=== PATIENT | male | born 1930 | race Caucasian/White ===

== ENCOUNTER 2017-11-01 20:03 | Inpatient (IN) | payer OTHER, MEDICARE ==
[~2017-11-01] VITALS: Ht 177.8 cm; Wt 69.9 kg
[~2017-11-01 20:03] MED LIST: AGGRENOX 25 MG-1 CAP PO; ALTACE5 MG PO; ATORVASTATIN CA40 MG PO; MECLICOT12.5 MG PO; METOPROLOL TART50 MG PO
--- NOTE | 2017-11-01 20:15 | ED MVC/FALL/TRAUMA COMPLAINT ---
History of Present Illness General Chief Complaint: Fall Stated Complaint: FALL Source: patient, old records, EMS Exam Limitations: no limitations Vital Signs & Intake/Output Vital Signs & Intake/Output Vital Signs Date Time Temp Pulse Resp B/P B/P Pulse O2 O2 Flow FiO2 Mean Ox Delivery Rate 11/01 2007 98.7 18 171/76 95 Room Air Room Air Allergies Coded Allergies: Penicillins (UNKNOWN 11/01/17) Reconcile Medications Atorvastatin Calcium (Lipitor) 40 MG TAB 1 TAB PO DAILY CHOLESTEROL (Reported ) Dipyridamole W/ Aspirin (Aggrenox 25 MG-200 MG Capsule) 25 MG/200 MG CAP 1 CAP PO BID BLOOD THINNER (Reported) Meclizine Hydrochloride (Meclicot) 12.5 MG TAB 1 TAB PO Q6H PRN DIZZINESS Metoprolol Tartrate 50 MG TAB 1.5 TAB PO BID HEART (Reported) Ramipril (Altace) 5 MG CAP 1 CAP PO DAILY BP (Reported) Triage Note: TRIAGE: 87 Y/O MALE BIBA FROM HOME S/P FALL AFTER SLIP ON ICE THIS AFTERNOON. "I WAS TAKING OUT THE GARBAGE FOR COLLECTION TOMORROW AND I SLIPPED." DENIES HEADSDTRIKE. REPORTS 5/10 LEFT HIP PAIN. Triage Nurses Notes Reviewed? yes HPI: Patient was wearing his trash out when he slipped on the ice and fell landing on his left hip. Patient denies hitting his head and there was no loss of consciousness. Patient is complaining of 7 out of 10 pain to his left hip that increases with movement. The pain radiates down towards his knee. The pain is constant. The pain is throbbing in nature. Patient denies any other injury. Patient denies any shortness of breath. There is no headache or blurry vision. Past History Travel History Traveled to [place] past 21 day No Medical History Any Pertinent Medical History? 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 No Review of Systems Review of Systems Constitutional: Reports: no symptoms. Eyes: Reports: no symptoms. Ears, Nose, Throat, Mouth: Reports: no symptoms. Respiratory: Reports: no symptoms. Cardiovascular: Reports: no symptoms. Gastrointestinal/Abdominal: Reports: no symptoms. Genitourinary: Reports: no symptoms. Musculoskeletal: Reports: see HPI, joint pain. Skin: Reports: no symptoms. Neurological/Psychological: Reports: no symptoms. All Other Systems: Reviewed and Negative Physical Exam Physical Exam General Appearance: well developed/nourished, alert, awake, anxious, moderate distress Head: atraumatic, normal appearance Eyes: Bilateral: PERRL, EOMI. Ears, Nose, Throat, Mouth: hearing grossly normal, moist mucous membrane Neck: normal inspection, supple, full range of motion, no midline tenderness Respiratory: normal breath sounds, chest non-tender, no respiratory distress, lungs clear Cardiovascular: regular rate/rhythm, normal peripheral pulses Gastrointestinal: normal bowel sounds, soft, non-tender, no organomegaly Back: normal inspection, no vertebral tenderness Extremities: tenderness (LEFT HIP), DECREASED ROM LEFT HIP, LLE SHORTENED Neurologic/Psych: no motor/sensory deficits, awake, alert, oriented x 3, normal mood/affect Skin: intact, normal color, warm/dry Core Measures ACS in differential dx? No CVA/TIA Diagnosis No Sepsis Present: No Sepsis Focused Exam Completed? No Progress Differential Diagnosis: ext injury, pnemothorax Plan of Care: Orders Procedure Date/time Status Nothing by Mouth 11/02 B Active ED Holding Orders 11/01 2212 Active Admit to inpatient 11/01 2212 Active Vital Signs 11/01 2212 Active Code Status 11/01 2212 Active EKG 11/01 2013 Active PARTIAL THROMBOPLASTIN TIME 11/01 2012 Complete PROTHROMBIN TIME 11/01 2012 Complete COMPREHENSIVE METABOLIC PANEL 11/01 2012 Complete CBC WITHOUT DIFFERENTIAL 11/01 2012 Complete TYPE & SCREEN (NOT X-MATCH) 11/01 2012 Complete Laboratory Tests 11/01/172021: Anion Gap 12, Estimated GFR 41 L, BUN/Creatinine Ratio 33.1 H, Glucose 194 H, Calcium 9.8, Total Bilirubin 0.9, AST 60 H, ALT 38, Alkaline Phosphatase 75, Total Protein 6.8, Albumin 4.3, Globulin 2.5, Albumin/Globulin Ratio 1.7, PT 11.6, INR 1.11, APTT 29, CBC w Diff NO MAN DIFF REQ, RBC 3.31 L, MCV 99.6 H, MCH 33.3 H, RDW 13.1, MPV 8.7, Gran % 90.0 H, Lymphocytes % 3.5 L, Monocytes % 6.5, Eosinophils % 0, Basophils % 0, Absolute Granulocytes 9.9 H, Absolute Lymphocytes 0.4 L, Absolute Monocytes 0.7 H, Absolute Eosinophils 0, Absolute Basophils 0, PUBS MCHC 33.4 Diagnostic Imaging: Viewed by Me: Radiology Read. Discussed w/RAD: Radiology Read. Initial ED EKG: pacemaker rhythm Prior EKG: unchanged Departure Departure Disposition: STILL A PATIENT Condition: Fair Clinical Impression Primary Impression: Fracture of femoral neck, left, closed Qualifiers: Encounter type: initial encounter Qualified Code: S72.002A - Fracture of unspecified part of neck of left femur, initial encounter for closed fracture Referrals: Ye Escoto MD (PCP/Family) Departure Forms: Customer Survey General Discharge Information Admission Note Spoke With: Johnnie Robertson MD Documentation of Exam: Documentation of any treatments & extenuating circumstances including Concerns Regarding Discharge (functional status, medication knowledge or non-compliance, living conditions, etc.) that warrant an admission rather than observation: [ ADMIT FOR PAIN CONTROL, MEDICAL CLEARENCE AND THEN OR FOR SURGICAL CORRECTION.]
[2017-11-01 20:29] LABS: ABSOLUTE BASOPHIL COUNT 0 /CUMM (0.0-0.2); ABSOLUTE EOSINOPHIL COUNT 0 /CUMM (0.0-0.7); ABSOLUTE GRANULOCYTE CT 9.9 /CUMM (1.4-6.5); ABSOLUTE LYMPH COUNT 0.4 /CUMM (1.2-3.4); ABSOLUTE MONOCYTE COUNT 0.7 /CUMM (0.10-0.60); BASOPHIL % 0 % (0.0-2.0); EOSINOPHIL % 0 % (0-5); MEAN CORPUSCULAR HGB 33.3 PG (27.0-31.0); MEAN CORPUSCULAR HGB CONC 33.4 G/DL (33.0-37.0); MEAN CORPUSCULAR VOLUME 99.6 FL (80.0-94.0); MEAN PLATELET VOLUME 8.7 FL (7.4-10.4); PLATELET COUNT 133 /CUMM (130-400); RBC DISTRIBUTION WIDTH 13.1 % (11.5-14.5); RED BLOOD CELL CT 3.31 /CUMM (4.70-6.10)
[2017-11-01 20:37] LABS: PT 11.6 SEC (9.4-12.5); PTT 29 SEC (25-37)
--- NOTE | 2017-11-01 22:05 | RADIOLOGY REPORT ---
EXAMINATION: XR PELVIS XR LET HIP CLINICAL INFORMATION: Fall. Pain. COMPARISON: None TECHNIQUE: AP view of the pelvis. AP and crosstable lateral views of left hip FINDINGS: There is a comminuted, displaced left subcapital femoral neck fracture. The distal left femur is subluxed cephalad relative to the femoral head which remains normally positioned within the acetabulum. There is mild degenerative arthrosis of the bilateral hips with superior joint space narrowing. Elsewhere, no pelvic fracture is seen. The right hip and pubic rami are intact. There is degenerative arthrosis of the bilateral sacroiliac joints and lower lumbar degenerative changes. IMPRESSION: Comminuted, displaced left subcapital femoral neck fracture with the distal femur superiorly subluxed relative to the femoral head.
--- NOTE | 2017-11-01 22:09 | RADIOLOGY REPORT ---
EXAMINATION:\H\ \N\XR CHEST CLINICAL INFORMATION: Pneumothorax. Fell. COMPARISON: 03/16/2009 TECHNIQUE: Frontal view of the chest was obtained. FINDINGS: Right pectoral 2-lead pacemaker seen with contiguous, intact leads projecting over the right atrium and right ventricle. Sternal wires. Normal heart size. No definite rib fracture seen. Upper abdominal surgical clips. No focal consolidation or mass. No pleural effusion or pneumothorax. Pulmonary venous hypertension without overt edema. IMPRESSION: There is pulmonary venous hypertension without overt edema. 2-lead pacemaker in place, as described above. No definite rib fracture seen.
--- NOTE | 2017-11-01 22:23 | CT SCAN REPORT ---
EXAMINATION: CT OF THE HEAD AND CERVICAL SPINE WITHOUT CONTRAST CLINICAL INFORMATION: Fall. Distracting injury. On Aggrenox. Evaluate for intracranial hemorrhage. COMPARISON: Prior head CT 04/21/2011 TECHNIQUE: Contiguous axial imaging was performed from the vertex to the thoracic inlet, through the head and cervical spine, without intravenous administration of contrast. Coronal and sagittal reformatted images through the cervical spine were obtained on the technologists workstation. Total exam dose-length product: 654 mGy-cm FINDINGS: Head: Motion artifact degrades imaging of the posterior fossa but those images were repeated. No acute intracranial hemorrhage. No extra-axial fluid collection. Left high parietal encephalomalacia consistent with remote prior ischemia is again seen. Otherwise, ling-white differentiation is maintained and there is otherwise normal parenchymal attenuation. Symmetric, concordant ventricles and sulci; no hydrocephalus. No mass effect or midline shift. The osseous structures and soft tissues are normal. No acute sinusitis. Cervical spine: There is counterclockwise, rightward rotation of C1 on C2. No fracture seen. Normal sagittal alignment. Normal prevertebral soft tissues. There is normal T level facet arthropathy moderate on the left at C2-3 through C4-5 and severe on the right at C3-4 and C4-5. No jumped or perched facets are seen. There is multilevel loss of disc height with anterior osteophytosis, most notable at C5-6. Thyroid homogeneous with no nodules seen. Mild upper lobe emphysema. No focal consolidation or mass. Thyroid is homogeneous. No cervical lymphadenopathy, mass, or fluid collection. IMPRESSION: No acute intracranial pathology. Specifically, no intracranial hemorrhage seen. Left high parietal encephalomalacia consistent with remote prior ischemia. There is rightward rotation of C1 on C2. This could be positional or could be due to rotatory subluxation. Recommend correlation with physical exam. There is extensive cervical spondylosis but no fracture is seen.
--- NOTE | 2017-11-02 00:35 | History & Physical ---
Naty CAMPOS,[facility] 11/02/17 0034: General Information and HPI MD Statement: I have seen and personally examined MUKUL ZAVALA and documented this H&P. The patient is a 87 year old M who presented with a patient stated chief complaint of [mechanical fall]. Source of Information: patient Exam Limitations: no limitations History of Present Illness: Mr. Zavala is an 87 year-old gentleman with past medical history significant for TIA, [place] status post CABG(1999), carotid artery stenosis, diverticulitis, anemia and bradycardia status post pacemaker placement(2008) presents to the ER after having a mechanical fall. According to the patient, he was taking out the trash can when he slipped on his left side on the ice. Complains of left hip pain, 7/10 in intensity. Denies hitting his head or loss of consciousness, also denies any dizziness/ lightheadedness before the fall. He reports diarrhea that started 1 day ago, states he drinks enough fluid and has been keeping himself hydrated. Denies any chest pain, palpitations, shortness of breath, abdominal pain, nausea, vomiting, blurry vision, cough or blood in stools or urine. Allergies/Medications Allergies: Coded Allergies: Penicillins (UNKNOWN 11/01/17) Home Med list Atorvastatin Calcium (Lipitor) 40 MG TAB 1 TAB PO DAILY CHOLESTEROL (Reported ) Dipyridamole W/ Aspirin (Aggrenox 25 MG-200 MG Capsule) 25 MG/200 MG CAP 1 CAP PO BID BLOOD THINNER (Reported) Meclizine Hydrochloride (Meclicot) 12.5 MG TAB 1 TAB PO Q6H PRN DIZZINESS Metoprolol Tartrate 50 MG TAB 1.5 TAB PO BID HEART (Reported) Ramipril (Altace) 5 MG CAP 1 CAP PO DAILY BP (Reported) Past History Travel History Traveled to [place] past 21 day No Medical History Neurological: TIA EENT: NONE Cardiovascular: CAD, carotid stenosis Respiratory: NONE Gastrointestinal: diverticulitis Hepatic: NONE Renal: NONE Musculoskeletal: NONE Psychiatric: NONE Endocrine: NONE Blood Disorders: anemia Cancer(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 Home Who Do You Live With? self Smoking Status: Former Smoker ETOH Use: denies use Illicit Drug Use: denies illicit drug use Functional Ability ADLs Independent: dressing, eating, toileting, bathing. Ambulation: independent IADLs Independent: shopping, housework, finances, food prep, telephone, transportation , medication admin. Review of Systems Review of Systems Constitutional: Reports: no symptoms. GI: Reports: diarrhea. Musculoskeletal: Reports: joint pain. Exam & Diagnostic Data Last 24 Hrs of Vital Signs/I&O Vital Signs Date Time Temp Pulse Resp B/P B/P Pulse O2 O2 Flow FiO2 Mean Ox Delivery Rate 11/02 0154 100.5 77 14 145/66 11/02 0139 100.5 77 14 145/66 96 Room Air Room Air 11/01 2007 98.7 77 18 171/76 95 Room Air Room Air Intake & Output 11/02 0800 11/02 0000 11/01 1600 Intake Total Output Total Balance Patient 154 lb Weight Weight Reported by Patient Measurement Method Physical Exam General Appearance Alert, Oriented X3, Cooperative Skin No Rashes, No Breakdown HEENT Atraumatic, PERRLA, EOMI, Mucous Membr. moist/pink Neck Supple, No JVD, No thryomegaly Cardiovascular Regular Rate, Normal S1, Normal S2 Lungs Clear to Auscultation Abdomen Normal Bowel Sounds, Soft, No Tenderness Extremities No Clubbing, No Cyanosis, No Edema, Normal Pulses, decreased ROM of left hip because of pain, normal ROM of other joints, no hematoma or bruising over the left hip Last 24 Hrs of Labs/Olu: Laboratory Tests 11/02/17 0147: Troponin I Pending 11/01/172021: Anion Gap 12, Estimated GFR 41 L, BUN/Creatinine Ratio 33.1 H, Glucose 194 H, Calcium 9.8, Total Bilirubin 0.9, AST 60 H, ALT 38, Alkaline Phosphatase 75, Total Protein 6.8, Albumin 4.3, Globulin 2.5, Albumin/Globulin Ratio 1.7, PT 11.6, INR 1.11, APTT 29, CBC w Diff NO MAN DIFF REQ, RBC 3.31 L, MCV 99.6 H, MCH 33.3 H, RDW 13.1, MPV 8.7, Gran % 90.0 H, Lymphocytes % 3.5 L, Monocytes % 6.5, Eosinophils % 0, Basophils % 0, Absolute Granulocytes 9.9 H, Absolute Lymphocytes 0.4 L, Absolute Monocytes 0.7 H, Absolute Eosinophils 0, Absolute Basophils 0, PUBS MCHC 33.4 Diagnostic Data EKG Results Atrial paced rhythm Heart rate 79 QTC 510 CXR Results IMPRESSION: There is pulmonary venous hypertension without overt edema. 2-lead pacemaker in place, as described above. No definite rib fracture seen. Other Results XRY-AP PELVIS; XRY-HIP 2-3 VIEWS, LEFT IMPRESSION: Comminuted, displaced left subcapital femoral neck fracture with the distal femur superiorly subluxed relative to the femoral head. CT CERV SPINE WO IV CONTRAST; CT HEAD WO IV CONTRAST IMPRESSION: No acute intracranial pathology. Specifically, no intracranial hemorrhage seen. Left high parietal encephalomalacia consistent with remote prior ischemia. There is rightward rotation of C1 on C2. This could be positional or could be due to rotatory subluxation. Recommend correlation with physical exam. There is extensive cervical spondylosis but no fracture is seen. Assessment/Plan Assessment: Mr. Zavala is an 87 year-old gentleman with past medical history significant for TIA, [place] status post CABG(1999), carotid artery stenosis, diverticulitis, anemia and bradycardia status post pacemaker placement(2008) presents to the ER after having a mechanical fall. A/P; 1. Left hip fracture; Comminuted, subcapital femoral neck fracture. - Pain control with very Tylenol and morphine. -Orthopedic consult; nothing by mouth for surgery tomorrow after clearance from cardiology. - Cardiology consult for preop clearance - Repeat troponins and EKG - Echocardiogram - We'll hold Aggrenox - Likely STR placement at time of discharge. 2. Hyperkalemia; - Potassium level 5.7 - Will give 1 dose of Kayexalate and repeat BEP. - Will watch for any EKG changes. - Repeat labs in a.m. 3. Prolonged QTC; -Avoid QTC prolonging agents 4. Chronic medical conditions; - Continue home medications except Aggrenox in anticipation for surgery. DVT prophylaxis; subcutaneous heparin and Alps Patient is DNR/DNI As Ranked By This Provider Problem List: 1. Fracture of femoral neck, left, closed Qualifiers Encounter type: initial encounter Qualified Code: S72.002A - Fracture of unspecified part of neck of left femur, initial encounter for closed fracture Core Measures/Misc (07/13) Acute Coronary Syndrome ACS Diagnosis: No Congestive Heart Failure Congestive Heart Failure Diagnosis No Cerebrovascular Accident CVA/TIA Diagnosis: No VTE (View Protocol) VTE Risk Factors Immobility No Mechanical VTE Prophylaxis d/t N/A MechProphylax Ordered No VTE Pharm Prophylaxis d/t NA PharmProphylax ordered Sepsis (View protocol) Sepsis Present: Lian Zarate 11/02/17 0133: Resident Review Statement Resident Statement: examined this patient, discussed with programming internship Other Findings: Patient is on 87-year-old gentleman was medical history significant for [place] status post CABG 1999, history of bradycardia status post pacemaker 2008, 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 Patient mentioned that while putting his trash cans outside he slipped on ice. Denied any dizziness lightheadedness , loss of consciousness before and after the fall. After the fall he couldn't get up because of excruciating left-sided hip pain and was brought in to the ER for further assessment. In the ER patient was complaining of 7/10 left-sided hip throbbing pain radiating to the knee. Denied any other injuries. Denied any shortness of breath/palpitations chest discomfort. No recent illnesses or infections. Denied any nausea vomiting abdominal discomfort however reported 1 day history of loose watery stools without any blood. Denies any urinary symptoms. Pelvic x-ray revealed :Comminuted, displaced left subcapital femoral neck fracture with the distal femur superiorly subluxed relative to the femoral head. What is on admission temperature: 98.7, pulse(not documented), blood pressure 171/76 on room air On examination General Appearance:alert oriented 3,mild distress Skin: Grossly normal HEENT: PEERLA Neck: Supple, No JVD Cardiovascular: Regular Rate, Normal S1, Normal S2, systolic murmur in the second right intercostal space. Lungs: Equal breath sounds bilaterally on lung exam without any rhonchi or wheeze Abdomen: Normal Bowel Sounds, Soft, lower abdominal tenderness. Neurological: Normal Speech, Strength at 5/5 X4 Ext, Cranial Nerves 3-12 NL, Reflexes 2+ Extremities:No Edema in low extremities, no left-sided hip Hematoma. Pertinent labs on admission: Leukocytosis 11.1 with granulocytosis 90(likely reactive), hyperkalemia 5.7 elevated BUN and creatinine 53/1.9, normal coags Head CT scan negative pelvic xray:Comminuted, displaced left subcapital femoral neck fracture with the distal femur superiorly subluxed relative to the femoral head. Problem list Left-sided displaced :Comminuted, subcapital femoral neck fracture(status post mechanical fall) Hyperkalemia. Mild MALISSA QTC prolongation History of coronary artery disease status post CABG 1999 History of TIA/CVA on Aggrenox History of hypertension, lipidemia Boderline Diabetes Plan Left-sided displaced :Comminuted, subcapital femoral neck fracture(status post mechanical fall): * Admit the patient to [facility] floor. * Calculated RCRI index :2 percent (6.6% risk for major cardiac event 11 , calculated METS:4. * Will call cardiology in the morning for medical and cardiac optimization before the surgery. * Obtain 2 more sets of troponin with EKG. Obtain echocardiogram. * Patient has been evaluated by surgery, patient will require surgery after medical and cardiac clearance. * Adequate pain control with IV Tylenol and morphine. * Nothing by mouth from midnight for possible surgery tomorrow * Continue gentle hydration. Hyperkalemia * Received 1 dose of by mouth Kayexalate * Recheck BeP in the morning. Mild MALISSA * Continue gentle hydration * Avoid nephrotoxic agents. QTC prolongation * Monitor EKG * Avoid QTC prolonging agents. History of coronary artery disease status post CABG 1999 * Continue metoprolol and statin. History of TIA/CVA on Aggrenox * Will hold Aggrenox in anticipation for surgery tomorrow. History of hypertension, lipidemia * Continue metoprolol and statin. Boderline Diabetes: * ACCU checks DVT prophylaxis: ALPS with subcutaneous heparin if no plans for surgery earlier tomorrow. Pain controlled with morphine and IV Tylenol Patient is DNR/DNI Johnnie Robertson 11/02/17 0736: Attending MD Review Statement Attending Statement Attending MD Statement: examined this patient, discuss w/resident/PA/BREAKER MACHINE TENDER, agreed w/resident/PA/BREAKER MACHINE TENDER, reviewed EMR data (avail), reviewed images, amended to note Attending Assessment/Plan: CC: S/p Fall PMH: ? "spots on MRI" ?TIA, CAD S/P CABG, bradycardia S/P pacemaker, history of diverticulitis, history of anemia, history of Lyme disease, diet-controlled diabetes, Patient was brought in ER through EMS ER after accidental fall on ice when he was taking out his garbage he slipped on the ice. Denied any head strike, loss of consciousness, immediately had left hip pain and called EMS. Denies any chest pain, palpitations before or after fall. Otherwise ROS unremarkable. Vitals: T max 100.5, pulse 77, RR 18, blood pressure 171/76, saturating well on room air. On exam: A O 3, hard of hearing, cooperative, no acute distress, neck supple, JVD normal, no lymphadenopathy, mucosa moist, no focal neurological deficit, left leg short, bony tenderness, no bruising or laceration, no dependent edema, no obvious skin rashes or inflammation CVS: S1-S2, RRR. RS: Clear to auscultate bilaterally. Abdomen: Soft, NT, ND, bowel sounds present. Labs: WBC 11.0, hemoglobin 11.0, hematocrit 33.0, platelets 133, neutrophils 90% , sodium 140, potassium 5.7, chloride 104, bicarbonate 21, BUN 53, creatinine 1.6, glucose 194, LFT unremarkable, troponin 0.05, INR 1.[address], cervical spine CT, pelvic x-ray, hip x-ray, chest x-ray: 1. No acute intracranial pathology. Specifically, no intracranial hemorrhage seen. Left high parietal encephalomalacia consistent with remote prior ischemia. 2 There is rightward rotation of C1 on C2. This could be positional or could be due to rotatory subluxation. Recommend correlation with physical exam. There is extensive cervical spondylosis but no fracture is seen. 3.Comminuted, displaced left subcapital femoral neck fracture with the distal femur superiorly subluxed relative to the femoral head. 4.There is pulmonary venous hypertension without overt edema. 2-lead pacemaker in place, as described above. No definite rib fracture seen. Assessment and plan 87-year-old male with extensive past medical history was brought in ER after accidental fall on ice. Patient is found to have left subcapital femoral neck fracture, will require left hemiarthroplasty, given his extensive cardiac history he will require cardiac clearance because he has moderate risk 6.6% perioperative mortality/morbidity for cardiac causes. Fever and leukocytosis appears reactive, no source of infection identified. + Left subcapital humeral neck fracture + Preop evaluation + History of CVA, CAD S/P CABG, bradycardia S/P pacemaker, history of diverticulitis, history of anemia, history of Lyme disease, diet-controlled diabetes, - Admit to general medicine - continue metoprolol, - hold Aggrenox, - adequate pain control - Gentle hydration - Accu-Cheks - Cardiac consult for clearance - Continue other home medications - DVT prophylaxis after surgery - Patient lives alone at home we will need rehabilitation placement
--- NOTE | 2017-11-02 01:17 | Cons- Orthopedic ---
Verónica Roberson 11/02/17 0102: General Information and HPI Consulting Request Date of Consult: 11/01/17 Requested By: Johnnie Robertson MD Reason for Consult: Left hip fracture Source of Information: patient, old records Exam Limitations: patient's age History of Present Illness: Patient is an 87-year-old male with past medical history significant for coronary artery disease, status post CABG, permanent pacemaker, carotid stenosis , history of TIAs, anemia, diverticulitis, and hearing loss, who was brought into the [facility] ED with complaints of left hip pain after a fall in his home yesterday around 3 PM. Patient states that he tripped and fell and was unable to bear weight. He called the ambulance and felt like the pain might be getting a little bit better, so he sent them away. He soon realized that he was unable to mobilize independently and requested transfer to the hospital. He recalls the entire event and denies loss of consciousness. He lives alone and no one was present at the time of the fall. He denies pain or injury and other areas and states that the pain is relatively controlled when he is lying down and not moving. Also denies headache, dizziness, chest pain, shortness of breath. Allergies/Medications Allergies: Coded Allergies: Penicillins (UNKNOWN 11/01/17) Home Med List: Atorvastatin Calcium (Lipitor) 40 MG TAB 1 TAB PO DAILY CHOLESTEROL (Reported ) Dipyridamole W/ Aspirin (Aggrenox 25 MG-200 MG Capsule) 25 MG/200 MG CAP 1 CAP PO BID BLOOD THINNER (Reported) Meclizine Hydrochloride (Meclicot) 12.5 MG TAB 1 TAB PO Q6H PRN DIZZINESS Metoprolol Tartrate 50 MG TAB 1.5 TAB PO BID HEART (Reported) Ramipril (Altace) 5 MG CAP 1 CAP PO DAILY BP (Reported) Past History Medical History Neurological: TIA EENT: NONE Cardiovascular: CAD, carotid stenosis Respiratory: NONE Gastrointestinal: diverticulitis Hepatic: NONE Renal: NONE Musculoskeletal: NONE Psychiatric: NONE Endocrine: NONE Blood Disorders: anemia Cancer(s): NONE 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 Home Who Do You Live With? alone ETOH Use: denies use Illicit Drug Use: denies illicit drug use Functional Ability Ambulation: independent Review of Systems Review of Systems: Positive for left hip pain and chronic hearing loss. Negative for headache, dizziness, chest pain, shortness of breath. Full review of systems was difficult to obtain due to patient's hearing loss. Exam & Diagnostic Data Vital Signs and I&O Vital Signs Date Time Temp Pulse Resp B/P B/P Pulse O2 O2 Flow FiO2 Mean Ox Delivery Rate 11/01 2007 98.7 18 171/76 95 Room Air Room Air Intake & Output 11/02 1600 Intake Total Output Total Balance Patient 154 lb Weight Weight Reported by Patient Measurement Method Physical Exam: Gen.: Patient is awake and alert. No acute distress. He is cooperative and verbal. Oriented to person, place, time, and situation. Asks appropriate questions. He is hard of hearing area did Extremities: No obvious deformities of the lower extremities were noted. There is tenderness over the left hip area, but it is very mild. No significant lower extremity edema noted bilaterally. No calf tenderness noted bilaterally. Patient is able to move his toes and plantar flex and dorsiflex without difficulty. DP pulse on the left is palpable, I am unable to palpate a PT pulse at baseline. Assessment/Plan Assessment/Plan Patient is an 87-year-old male patient is an 87-year-old male several medical problems including coronary artery disease, status post CABG, permanent pacemaker, who sustained a left subcapital femoral neck fracture. Plan: -Patient will require intraoperative intervention by way of hemiarthroplasty. -He will be admitted to the medical service for clearance and management of comorbidities. Per medicine, they will obtain a cardiology consult. -Please keep patient nothing by mouth after midnight in anticipation of possible surgery tomorrow. -Pain control as needed. Use caution with high-dose narcotics. -Alps for DVT prophylaxis. Okay to start subcutaneous heparin if surgery is not anticipated to happen early tomorrow. This was discussed with Dr. Bai, who is also in agreement, and has seen the patient. Consult Acknowledgment - Thank you for your consult request. Beth Bai MD 11/02/17 1050: Assessment/Plan Consult Acknowledgment - Thank you for your consult request. Attending Review Statement Attending Statement Attending Statement: examined this patient, discuss w/resident/PA/BROWNFIELD REDEVELOPMENT SITE MANAGER, agreed w/resident/PA/BROWNFIELD REDEVELOPMENT SITE MANAGER, reviewed images Attending Assessment/Plan: Patient seen and examined 11/01/17 and 11/02/17. Please elderly male lying supine, hard of hearing but comfortable. No complaints of chest pain or trouble breathing. Pain in left hip when he tries to move. No other complaints of pain. Exam: Left Lower Extremity Tender to palpation over left hip No pain in knee or lower leg. Intact EHL/FHL SILT over left ankle and foot A/P: 87yo M with significant cardiac history presents with left femoral neck fracture s/p fall at home last night. Admitted to Medical Service and Cardiac evaluation pending. Plan for OR when optimized for left hip hemiarthroplasty. Discussed injury and surgery with patient, who is amenable to proceeding but is appropriately concerned about his function following surgery. NPO for OR Pain control Recommend lynch placement for patient comfort Plan for OR when optimized by Medicine and Cardiology.
[2017-11-02 06:05] LABS: ABSOLUTE BASOPHIL COUNT 0 /CUMM (0.0-0.2); ABSOLUTE EOSINOPHIL COUNT 0.1 /CUMM (0.0-0.7); ABSOLUTE GRANULOCYTE CT 4.9 /CUMM (1.4-6.5); ABSOLUTE LYMPH COUNT 1.2 /CUMM (1.2-3.4); ABSOLUTE MONOCYTE COUNT 0.6 /CUMM (0.10-0.60); BASOPHIL % 0.2 % (0.0-2.0); GRANULOCYTE % 71.9 % (42.2-75.2); MEAN CORPUSCULAR HGB 32.9 PG (27.0-31.0); MEAN CORPUSCULAR HGB CONC 33.2 G/DL (33.0-37.0); MEAN CORPUSCULAR VOLUME 99.1 FL (80.0-94.0); MEAN PLATELET VOLUME 7.7 FL (7.4-10.4); PLATELET COUNT 109 /CUMM (130-400); RED BLOOD CELL CT 2.92 /CUMM (4.70-6.10); WHITE BLOOD CELL COUNT 6.8 /CUMM (4.8-10.8)
--- NOTE | 2017-11-02 07:38 | Admission Certification ---
Admission Certification Certification Statement - As attending physician, I certify that at the time of - admission, based on clinical presentation, severity of - symptoms, need for further diagnostic testing and - therapeutic interventions, and risk of adverse outcomes - without in-hospital treatment, in my clinical assessment, - this patient requires an acute hospital stay for a minimum - of two nights or longer. I have also considered psychsocial - factors such as support system, advanced age, financial - issues, cognitive issues, and failed out-patient treatments, - past re-admission history, safety of patient, and lack of - compliance as applicable. Specific rationale supporting this admission is: left femur neck fracture
--- NOTE | 2017-11-02 09:14 | PN- Housestaff ---
[facility]14: Subjective Follow-up For: Left hip fracture status post mechanical fall. Hyperkalemia(resolved) Subjective: No overnight events. Patient remained afebrile overnight. Seen and examined this morning. Patient denied any chest pain, short of breath, nausea, vomiting, chills, fever, abdominal pain dysuria. Patient reported that his left hip pain is under control with pain medication. Patient is nothing by mouth and he will go for hemiarthroplasty possibly today. We are holding his Aggrenox because he is going for surgery. Review of Systems Constitutional: Reports: no symptoms. EENTM: Reports: no symptoms. Cardiovascular: Reports: no symptoms. Respiratory: Reports: no symptoms. Gastrointestinal: Reports: no symptoms. Genitourinary: Reports: no symptoms. Musculoskeletal: Reports: see HPI. Neurological/Psychological: Reports: no symptoms. Objective Last 24 Hrs of Vital Signs/I&O Vital Signs Date Time Temp Pulse Resp B/P B/P Pulse O2 O2 Flow FiO2 Mean Ox Delivery Rate 11/02 1041 98.1 64 20 111/64 11/02 0820 98.1 64 18 109/59 97 Room Air 11/02 0633 99.6 65 16 131/64 96 11/02 0320 100.1 82 16 125/59 98 Room Air 11/02 0154 100.5 77 14 145/66 11/02 0139 100.5 77 14 145/66 96 Room Air Room Air 11/01 2008 98.7 77 18 171/76 95 Room Air Room Air Intake & Output 11/02 1600 11/02 0800 11/02 0000 Intake Total Output Total 200 Balance -200 Output, Urine 200 Patient 154 lb Weight Weight Reported by Patient Measurement Method Physical Exam General Appearance: Alert, Oriented X3, Cooperative, No Acute Distress Skin Temp/Moisture Exam: Warm/Dry HEENT: Atraumatic, PERRLA, EOMI Neck: Supple Cardiovascular: Normal S1, Normal S2 Lungs: Clear to Auscultation Abdomen: Soft, No Tenderness Neurological: Normal Speech, Normal Tone Extremities: No Edema, left leg hip fracture not able to move Assessment/Plan Assessment: 87 YO M was PMH significant for CA status post CABG 1999, history of bradycardia status post pacemaker 2008, 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 Left-sided commiunted displaced subcapital femoral neck fracture s/p mechanical fall: -Calculated RCRI index :2 percent (6.6% risk for major cardiac event 11 , calculated METS:4. -Will call cardiology in the morning for medical and cardiac optimization before the surgery. -Trops and ekgs are negative negative for any acute cardiac injury. -Cardiology claered the patient for surgery as Dr. arriola mentioned in his note. -Adequate pain control with IV Tylenol and morphine. -Nothing by mouth for possible surgery later today. -Continue gentle hydration. Hyperkalemia:(RESOLVED) -Received 1 dose of by mouth Kayexalate -This morning potassium is 4.6 CKD: -Continue gentle hydration -Avoid nephrotoxic agents. -Follow the BEP QTC prolongation: -Monitor EKG -Avoid QTC prolonging agents. History of coronary artery disease status post CABG in 1999: -Continue metoprolol and statin. History of TIA/CVA on Aggrenox -Will hold Aggrenox in anticipation for surgery tomorrow. History of hypertension, hyperlipidemia: -Continue metoprolol and statin. Boderline Diabetes: -ACCU checks DVT prophylaxis: ALPS with subcutaneous heparin DVT prophylaxis: DNR/DNI Problem List: 1. Fracture of femoral neck, left, closed 2. Fall Pain Ratin Pain Location: left hip Pain Goal: Pain 4 or less Pain Plan: tylenol for mild pain Tomorrow's Labs & Rationales: cbc/bep Chetan Mccain MD 11/02/17 1637: Attending MD Review Statement Attending Statement Attending MD Statement: examined this patient, discuss w/resident/PA/CLEANER INDUSTRIAL, agreed w/resident/PA/CLEANER INDUSTRIAL, reviewed EMR data (avail), reviewed images, amended to note Attending Assessment/Plan: The patient was seen and discussed with house staff. Agree with plan of care as outlined. Appreciate Cardiology input from Dr. Arriola (covering for Dr. Singer) as outlined in his note. Patient is stable from medical perspective for planned surgery (hemiarthroplasty).
--- NOTE | 2017-11-02 15:23 | Cons- Cardiology ---
General Information and HPI Consulting Request Date of Consult: 11/02/17 Requested By: Johnnie Robertson MD History of Present Illness: Mr. Yao is an 87 year old male with history of coronary artery disease status post CABG in 1999, TIA with carotid disease and permanent pacemaker for bradycardia. He presented to the ER for evaluation of left hip pain that began after he slipped on the ice while taking out the trash. He denies any associated palpitations or loss of consciousness associated with the fall. At his baseline his is moderately active for his age and he denies any chest discomfort, shortness of breath, lightheadedness or palpitations. In the ER the patient was noted to have a mildly elevated creatinine of 1.5 which about at his baseline. He has a normal EF by his last echocardiogram. The patient has noted diarrhea but he feels that he is drinking well and is keeping himself hydrated. Allergies/Medications Allergies: Coded Allergies: Penicillins (UNKNOWN 11/01/17) Home Med List: Atorvastatin Calcium (Lipitor) 40 MG TAB 1 TAB PO DAILY CHOLESTEROL (Reported ) Dipyridamole W/ Aspirin (Aggrenox 25 MG-200 MG Capsule) 25 MG/200 MG CAP 1 CAP PO BID BLOOD THINNER (Reported) Meclizine Hydrochloride (Meclicot) 12.5 MG TAB 1 TAB PO Q6H PRN DIZZINESS Metoprolol Tartrate 50 MG TAB 1.5 TAB PO BID HEART (Reported) Ramipril (Altace) 5 MG CAP 1 CAP PO DAILY BP (Reported) Review of Systems Review of Systems: diarrhea, presbycussis Past History Travel History Traveled to [place] past 21 day No Medical History Neurological: TIA EENT: NONE Cardiovascular: CAD, carotid stenosis Respiratory: NONE Gastrointestinal: diverticulitis Hepatic: NONE Renal: NONE Musculoskeletal: NONE Psychiatric: NONE Endocrine: NONE Blood Disorders: anemia Cancer(s): NONE 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 Home Who Do You Live With? self Smoking Status: Former Smoker ETOH Use: denies use Illicit Drug Use: denies illicit drug use Functional Ability ADLs Independent: dressing, eating, toileting, bathing. Ambulation: independent IADLs Independent: shopping, housework, finances, food prep, telephone, transportation , medication admin. Exam & Diagnostic Data Vital Signs and I&O Vital Signs Date Time Temp Pulse Resp B/P B/P Pulse O2 O2 Flow FiO2 Mean Ox Delivery Rate 11/02 1402 98.6 72 20 134/61 96 Room Air 11/02 1041 98.1 64 20 111/64 11/02 1000 98.5 64 20 111/64 96 Room Air 11/02 0820 98.1 64 18 109/59 97 Room Air 11/02 0633 99.6 65 16 131/64 96 11/02 0320 100.1 82 16 125/59 98 Room Air 11/02 0154 100.5 77 14 145/66 11/02 0139 100.5 77 14 145/66 96 Room Air Room Air 11/01 2008 98.7 77 18 171/76 95 Room Air Room Air Intake & Output 11/02 1600 11/02 0811/02 0000 11/01 1600 11/01 0800 11/01 0000 Intake Total Output Total 500 Balance -500 Output, Urine 500 Patient 154 lb Weight Weight Reported by Patient Measurement Method Physical Exam: General: WD/WN male in NAD; alert and oriented x 3 HEENT: NC/AT, PERRL, EOMI Neck: no JVD, no carotid bruit Heart: RRR with 2/6 systolic murmur Lungs: clear bilaterally Abdomen: soft, NT, +ve bowel sounds Extremiteis: no edema Diagnostic Data EKG Results atrial sensed and ventricular paced rhythm Assessment/Plan Assessment/Plan * This patient does carry a history of coronary artery disease but he has a normal EF and is without any symptoms of myocardial ischemia or decompensated heart failure at moderate amounts of physical activity. There is no evidence to support anything but a mechanical fall. Maintain adequate oral hydration. This patient is cleared for surgery from a cardiac standpoint. Consult Acknowledgment - Thank you for your consult request.
[2017-11-02 15:30] VITALS: BP 144/56
--- NOTE | 2017-11-02 20:18 | PN- Orthopedic ---
Surgical Brief Attending Note Brief Attending Note: Discussed delay of surgery with patient. Given timing of medical/cardiac clearance, in addition to other cases in operating room, will defer surgery until tomorrow (11/03/2017). While this is not ideal, it is safer to delay his surgery than operate late at night when fewer resources are available should there be any issues. Patient is disappointed but understands the situation. Left hip hemiarthroplasty will be performed by Dr. Marte or myself at the earliest available time. Patient may drink/eat today, please keep him NPO after midnight.
[2017-11-02 22:15] VITALS: BP 142/55
[2017-11-03 07:33] VITALS: BP 128/52
--- NOTE | 2017-11-03 07:38 | PN- Housestaff ---
[facility] 0738: Subjective Follow-up For: Left hip fracture status post mechanical fall. Hyperkalemia(resolved) Subjective: No overnight events. Patient remained afebrile. Seen and examined this morning. He denied any chest pain, short of breath, nausea, vomiting, abdominal pain, chills, fever and dysuria. Patient can't get left hip surgery yesterday but he is nothing by mouth and going for left hip surgery in the afternoon today. His pain is under control with pain medication. Patient was cleared for surgery yesterday by cardiology. Review of Systems Constitutional: Reports: no symptoms. EENTM: Reports: no symptoms. Cardiovascular: Reports: no symptoms. Respiratory: Reports: no symptoms. Gastrointestinal: Reports: no symptoms. Genitourinary: Reports: no symptoms. Musculoskeletal: Reports: see HPI. Neurological/Psychological: Reports: no symptoms. Objective Last 24 Hrs of Vital Signs/I&O Vital Signs Date Time Temp Pulse Resp B/P B/P Pulse O2 O2 Flow FiO2 Mean Ox Delivery Rate 11/03 1246 Room Air Room Air 11/03 0733 98.4 60 20 128/52 93 Room Air 11/02 2215 97.9 91 20 142/55 93 Room Air 11/02 1530 98.1 68 18 144/56 94 Room Air Room Air 11/02 1402 98.6 72 20 134/61 96 Room Air Intake & Output 11/03 1600 11/03 0800 11/03 0000 Intake Total 600 600 Output Total 325 825 Balance 275 -225 Intake, IV 600 600 Output, Urine 325 825 Physical Exam General Appearance: Alert, Oriented X3, Cooperative Skin Temp/Moisture Exam: Warm/Dry Sepsis Skin Exam (color): Normal for Ethnicity HEENT: Atraumatic, PERRLA, EOMI Neck: Supple Cardiovascular: Normal S1, Normal S2 Lungs: Clear to Auscultation Abdomen: Soft, No Tenderness Neurological: Normal Speech, Normal Tone Extremities: No Edema Assessment/Plan Assessment: 87 YO M was PMH significant for RI status post CABG 1999, history of bradycardia status post pacemaker 2008, 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 Left-sided commiunted displaced subcapital femoral neck fracture s/p mechanical fall: -His RCRI score is 2. -Trops and ekgs are negative negative for any acute cardiac injury. -Patient was cleared for surgery yesterday by hotel houseman. -Adequate pain control with IV Tylenol and morphine. -Nothing by mouth for possible surgery later today. -Continue gentle hydration. -Patient is nothing by mouth and going for surgery today. Hyperkalemia:(RESOLVED) -Received 1 dose of by mouth Kayexalate -This morning potassium is 4.6 CKD: -Continue gentle hydration -Avoid nephrotoxic agents. -Follow the BEP QTC prolongation: -Monitor EKG -Avoid QTC prolonging agents. History of coronary artery disease status post CABG in 1999: -Continue metoprolol and statin. History of TIA/CVA on Aggrenox -Will hold Aggrenox in anticipation for surgery tomorrow. History of hypertension, hyperlipidemia: -Continue metoprolol and statin. Boderline Diabetes: -ACCU checks DVT prophylaxis: ALPS with subcutaneous heparin DVT prophylaxis: DNR/DNI Problem List: 1. Fracture of femoral neck, left, closed Pain Ratin Pain Location: none Pain Goal: Remain pain free Pain Plan: tylenol for mild pain morphine for severe pain Tomorrow's Labs & Rationales: cbc/bep Stella Black MD 11/03/17 1612: Attending MD Review Statement Attending Statement Attending MD Statement: examined this patient, discuss w/resident/PA/SEASONING MIXER, agreed w/resident/PA/SEASONING MIXER, reviewed EMR data (avail) Attending Assessment/Plan: No acute issues, will go to OR today, continue current management
--- NOTE | 2017-11-03 09:19 | PN- Cardiology ---
Subjective Subjective: Chi Yao is an 86-year-old male who originally presented in 07/2001 with anterior myocardial infarction followed by cardiac catheterization showing severe triple-vessel disease, followed by bypass surgery, which he had on 2000. Subsequently he developed heart block postoperatively and required a permanent pacemaker, which was implanted by the surgeon, Dr. Sommer, on 2000, and was replaced by myself on 03/29/2009. His pacemaker ventricular lead has shown some issues and he is now unipolar paced in the ventricle with good function, but he is unable to be paced in bipolar mode in the ventricle. Since then, he has been doing pretty well. He has had no other cardiac issues. He has been stable with no further cardiac events. His lipids have been under good control. He did have an echocardiogram in 08/2014 showing ejection fraction of >65% and sclerotic aortic valve without aortic stenosis, moderate mitral regurgitation, and estimated right ventricular peak systolic pressure slightly elevated at 41 mmHg. He also had a stress test done 07/14/2013 which showed fixed posterior and posteroseptal defect, ejection fraction of 55%, and no ischemia. This was a pharmacologic stress test. Subsequently Chi has been doing well. I last saw him in August 2017 at which time he was stable. His pacemaker was showing some battery depletion but was not yet at elective replacement indication. He also was having some ventricular ectopy including some runs of nonsustained ventricular tachycardia detected by the device, but he is asymptomatic from this and we did not change his regimen. His medications at home include atorvastatin, ramipril, metoprolol, Aggrenox. The patient fell and broke his hip. He is preop for today. His labs are at his baseline with moderate chronic kidney disease. Objective Vital Signs and I&Os Vital Signs Date Time Temp Pulse Resp B/P B/P Pulse O2 O2 Flow FiO2 Mean Ox Delivery Rate 11/03 0733 98.4 60 20 128/52 93 Room Air 11/02 2215 97.9 91 20 142/55 93 Room Air 11/02 1530 98.1 68 18 144/56 94 Room Air Room Air 11/02 1402 98.6 72 20 134/61 96 Room Air 11/02 1041 98.1 64 20 111/64 11/02 1000 98.5 64 20 111/64 96 Room Air Intake & Output 11/03 1600 11/03 0800 11/03 0000 11/02 1600 11/02 0800 11/02 0000 Intake Total 600 600 Output Total 325 825 500 Balance 275 -225 -500 Intake, IV 600 600 Output, Urine 325 825 500 Patient 154 lb 154 lb Weight Weight Reported by Patient Reported by Patient Measurement Method Physical Exam: He is in no distress except for some leg pain. HEENT exam is normal Chest is clear Heart regular rhythm with some extrasystoles, soft systolic murmur at the base Extremities good pulses. Left leg externally rotated. Current Medications: Current Medications Sig/Chrissy Start time Last Medication Dose Route Stop Time Status Admin Acetaminophen 650 MG Q6P PRN 11/02 001 AC PO Acetaminophen 1,000 MG Q6P PRN 11/02 0015 AC 11/03 IV 0459 Atorvastatin Calcium 40 MG 1700 11/02 1700 AC 11/02 PO 2222 Heparin Sodium 0 .STK-MED ONE 11/02 1416 DC (Porcine) .ROUTE Heparin Sodium 5,000 UNIT Q8 11/02 0600 AC 11/03 (Porcine) SC 0500 Metoprolol Tartrate 75 MG BID 11/02 2200 AC 11/02 PO 2222 Metoprolol Tartrate 0 .STK-MED ONE 11/02 1032 DC PO Metoprolol Tartrate 0 .STK-MED ONE 11/02 1032 DC PO Metoprolol Tartrate 75 MG BID 11/02 0130 DC 11/02 PO 0154 Morphine Sulfate 0 .STK-MED ONE 11/02 1345 DC .ROUTE Morphine Sulfate 2 MG Q4P PRN 11/02 001 AC 11/02 IV 2018 Sodium Chloride 1,000 ML Q13H 11/02 14 AC 11/03 IV 0142 Results Last 48 Hrs of Labs/Mics: Laboratory Tests 11/03/17 0725: Sodium Pending, Potassium Pending, Chloride Pending, Carbon Dioxide Pending, Anion Gap Pending, BUN Pending, Creatinine Pending, BUN/Creatinine Ratio Pending , CBC w Diff Pending, WBC Pending, RBC Pending, Hgb Pending, Hct Pending, MCV Pending, MCH Pending, RDW Pending, Plt Count Pending, MPV Pending, PUBS MCHC Pending 11/02/17 0805: Troponin I 0.05 11/02/17 0600: Troponin I 0.06 11/02/17 0558: Anion Gap 8, Estimated GFR 44 L, BUN/Creatinine Ratio 31.3 H, CBC w Diff NO MAN DIFF REQ, RBC 2.92 L, MCV 99.1 H, MCH 32.9 H, RDW 13.0, MPV 7.7, Gran % 71.9, Lymphocytes % 17.6 L, Monocytes % 9.3, Eosinophils % 1.0, Basophils % 0.2 , Absolute Granulocytes 4.9, Absolute Lymphocytes 1.2, Absolute Monocytes 0.6, Absolute Eosinophils 0.1, Absolute Basophils 0, PUBS MCHC 33.2 11/02/17 0147: Troponin I 0.05 11/01/172021: Anion Gap 12, Estimated GFR 41 L, BUN/Creatinine Ratio 33.1 H, Glucose 194 H, Calcium 9.8, Total Bilirubin 0.9, AST 60 H, ALT 38, Alkaline Phosphatase 75, Total Protein 6.8, Albumin 4.3, Globulin 2.5, Albumin/Globulin Ratio 1.7, PT 11.6, INR 1.11, APTT 29, CBC w Diff NO MAN DIFF REQ, RBC 3.31 L, MCV 99.6 H, MCH 33.3 H, RDW 13.1, MPV 8.7, Gran % 90.0 H, Lymphocytes % 3.5 L, Monocytes % 6.5, Eosinophils % 0, Basophils % 0, Absolute Granulocytes 9.9 H, Absolute Lymphocytes 0.4 L, Absolute Monocytes 0.7 H, Absolute Eosinophils 0, Absolute Basophils 0, PUBS MCHC 33.4 Assessment/Plan Assessment/Plan The patient is stable for surgery. Close attention will need to be paid to his renal function postoperatively. If he does not have significant arrhythmias he can go back to general medicine postoperatively. Continue telemetry? Not applicable
[2017-11-03 09:27] LABS: ABSOLUTE BASOPHIL COUNT 0 /CUMM (0.0-0.2); ABSOLUTE EOSINOPHIL COUNT 0.1 /CUMM (0.0-0.7); ABSOLUTE GRANULOCYTE CT 3.8 /CUMM (1.4-6.5); ABSOLUTE MONOCYTE COUNT 0.6 /CUMM (0.10-0.60); BASOPHIL % 0.4 % (0.0-2.0); GRANULOCYTE % 69.9 % (42.2-75.2); HEMATOCRIT 27.2 % (42-52); MEAN CORPUSCULAR VOLUME 100.2 FL (80.0-94.0); MEAN PLATELET VOLUME 8.8 FL (7.4-10.4); PLATELET COUNT 92 /CUMM (130-400); RBC DISTRIBUTION WIDTH 13.1 % (11.5-14.5); RED BLOOD CELL CT 2.71 /CUMM (4.70-6.10); WHITE BLOOD CELL COUNT 5.5 /CUMM (4.8-10.8)
[2017-11-03 14:33] VITALS: BP 144/60
--- NOTE | 2017-11-03 19:36 | Operative Report ---
Operative/Inv Procedure Report Surgery Date: 11/03/17 Name of Procedure: Left hip hemiarthroplasty Pre-Operative Diagnosis: Left femoral neck fracture Post-Operative Diagnosis: Left femoral neck fracture Estimated Blood Loss: 50ml to 100ml Surgeon/Bleacher [place] Pulp: yeimi marte Anesthesia: general endotracheal tube Operative/Procedure Note Note: The patient's an 87-year-old man with left subcapital hip fracture brought to the operating room given a general anesthetic 2 g of Kefzol antibiotics was transferred to the operative table placed on a beanbag. He was placed in the right lateral decubitus position with an axillary roll in place and padding beneath and between his lower extremities. His perineum was draped out. The left hip and leg were then prepped and draped in usual sterile fashion. An incision was made about 5 cm distal to the greater trochanter along the anterior aspect of the greater trochanter and about 5-7 cm proximal. This was carried down to the fascia ashly. The fascia ashly was split. The Charnley retractor was placed. The gluteus medius was identified along with the vastus lateralis the trochanteric bursa was resected. A tagging stitch was placed 5 cm proximal to the greater trochanter in the gluteus medius at the junction of the anterior third and posterior two thirds. The gluteus medius was then split the vastus lateralis was split and this was connected at the greater trochanter leaving a nice sleeve of tissue to sew back. The capsular tissues gluteus medius minimus that was all resected anteriorly after teeing the capsule. The lesser trochanter was identified about a fingerbreadth above the femoral fracture site the neck cut was made. The leg was then placed in extension and the head removed with a corkscrew and skid. That was sized to a size 52. The leg was then placed in a pouch on the opposite side of the table for the anterolateral approach. Box osteotome was used to lateralize and enter the femoral canal. The initial reamer was carried out then broaching up to a size 4. Calcar reaming carried out. Then using a 53 mm head -3 neck the hip was reduced there was no shuck. There was full range of motion internally externally with no dislocation. The trial components were then removed thorough pulsed irrigation was carried out. The final implant size 4 stem Accolade was placed. Excellent rotational control was noted. The femoral neck again a -3 with a 53 mm outer diameter head was then placed tapped onto the trunnion and the hip was reduced. Again full range of motion was carried out no shuck. Thorough irrigation was carried out at this point the capsular layers were closed. The gluteus medius and vastus lateralis was closed as a sheet back to the trochanter. Excellent closure was carried out. Thorough irrigation was carried out between layers. The vastus lateralis was closed. Again more irrigation. Fascial ashly was closed with interrupted sutures. Subcutaneous layers were closed the skin closed with brian dry sterile dressings were applied a bed pillow was placed between the legs and he was transferred to the bed and transferred to the recovery room in stable condition no complications all needle and instrument counts correct and a dictation by Dr. Marte thank you
--- NOTE | 2017-11-03 20:07 | RADIOLOGY REPORT ---
EXAMINATION: XR PELVIS CLINICAL INFORMATION: Left hip replacement COMPARISON: Pelvis, left hip 11/01/2017 TECHNIQUE: AP view of the pelvis. FINDINGS: Status post left hip replacement. Components in place. Air in the joint and soft tissues related to the surgery with surgical skin clips along the lateral side of the hip. IMPRESSION: Status post left hip replacement.
[2017-11-03 20:21] VITALS: BP 135/70
--- NOTE | 2017-11-03 21:13 | PN- Orthopedic ---
Subjective Subjective: POSTOP CHECK Pain controlled, feeling ok. hungry. dtv postop. no n/v/cp/sob. awating pt eval in am Objective Vital Signs and I&Os Vital Signs Date Time Temp Pulse Resp B/P B/P Pulse O2 O2 Flow FiO2 Mean Ox Delivery Rate 11/03 1433 98.7 58 20 144/60 93 11/03 1246 Room Air Room Air 11/03 07 98.4 60 20 128/52 93 Room Air 11/02 2215 97.9 91 20 142/55 93 Room Air Intake & Output 11/03 1600 11/03 0800 11/03 0000 11/02 1600 11/02 0000 Intake Total 510 600 600 Output Total 300 325 825 500 Balance 210 275 -225 -500 Intake, IV 450 600 600 Intake, Oral 60 Output, Urine 300 325 825 500 Patient 154 lb 154 lb Weight Weight Reported by Patient Reported by Patient Measurement Method Physical Exam: GEN- nad CARD-s1s2 rrr PULM-ctab EXT- L hip: dsg cdi, nt, ice pack in place, gross motor/sensory intact, palp dp. alps on, calves soft nt bl Assessment/Plan Assessment/Plan A- POD0 sp l hemiarthroplasty, stable w minimal pain. P- prn pain meds reg diet as tolerated hl once voiding and tolerating po am labs rec: lovenox daily for anticoag dsg change pod2 pt, wbat will dw attending
[2017-11-04 04:52] VITALS: BP 98/48
[2017-11-04 06:05] VITALS: BP 100/56
--- NOTE | 2017-11-04 07:33 | PN- Housestaff ---
[facility] 0733: Subjective Follow-up For: Left hip fracture S/P left hemiarthroplasty. Subjective: No overnight events. Patient remained afebrile overnight. Seen and examined this morning. Patient denied any chest pain, short of breath, nausea, vomiting, chills, fever, abdominal pain and dysuria. Patient had left hemiarthroplasty yesterday and today's postop day 1. Patient is eating and drinking normally. There is no complaint of urinary retention he is passing urine with out difficulty. He is able to move left toes. No complaint of numbness tingling sensation. Pain is pretty much controlled with pain medications. Review of Systems Constitutional: Reports: no symptoms. EENTM: Reports: no symptoms. Cardiovascular: Reports: no symptoms. Respiratory: Reports: no symptoms. Gastrointestinal: Reports: no symptoms. Genitourinary: Reports: see HPI. Musculoskeletal: Reports: see HPI. Neurological/Psychological: Reports: no symptoms. Objective Last 24 Hrs of Vital Signs/I&O Vital Signs Date Time Temp Pulse Resp B/P B/P Pulse O2 O2 Flow FiO2 Mean Ox Delivery Rate 11/04 0605 66 100/56 11/04 0452 97.8 60 20 98/48 94 Room Air 11/03 2237 64 11/03 2021 98.7 58 20 135/70 94 Room Air 11/03 1433 98.7 58 20 144/60 93 08 1246 Room Air Room Air Intake & Output 11/04 1600 11/04 0800 11/04 0000 Intake Total 765 300 Output Total 400 100 Balance 365 200 Intake, IV 525 Intake, Oral 240 300 Output, Urine 400 100 Physical Exam General Appearance: Alert, Oriented X3, Cooperative, No Acute Distress Skin Temp/Moisture Exam: Warm/Dry HEENT: Atraumatic, PERRLA, EOMI Neck: Supple Cardiovascular: Normal S1, Normal S2 Lungs: Clear to Auscultation Abdomen: Soft, No Tenderness Neurological: Normal Speech, Normal Tone Extremities: No Edema Assessment/Plan Assessment: 87 YO M was PMH significant for OH status post CABG 1999, history of bradycardia status post pacemaker 2008, 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 Left hip fracture after the fall status post left hip hemiarthroplasty: -Postop day 1 after left hip hemiarthroplasty. -We will give him Lovenox for DVT prophylaxis. -Pain management according to pain pathway. -Physical therapy. -We'll follow the orthopedic recommendations. -We'll follow the H&H if there is any drop in H&H. This morning patient has Hb 7.4 compared to 9.2 yesterday. We will repeat cbc again to check if it's duration of effect. If it's not delusional and 2 drop in H&H we will transfuse the patient to keep his an H&H above 8. We will try to find the source of bleeding. Hyperkalemia:(RESOLVED) -Received 1 dose of by mouth Kayexalate -This morning potassium is 4.6 CKD: -Continue gentle hydration -Avoid nephrotoxic agents. -Follow the BEP QTC prolongation: -Monitor EKG -Avoid QTC prolonging agents. History of coronary artery disease status post CABG in 1999: -Continue metoprolol and statin. History of TIA/CVA on Aggrenox -Will hold Aggrenox in anticipation for surgery tomorrow. History of hypertension, hyperlipidemia: -Continue metoprolol and statin. Boderline Diabetes: -ACCU checks DVT prophylaxis: ALPS with subcutaneous heparin DVT prophylaxis: DNR/DNI Problem List: 1. Fracture of femoral neck, left, closed Pain Ratin Pain Location: none Pain Goal: Remain pain free Pain Plan: tylenol for pain Tomorrow's Labs & Rationales: cbc/bep Stella Black MD 11/04/17 1310: Attending MD Review Statement Attending Statement Attending MD Statement: examined this patient, discuss w/resident/PA/HEALTH ASSISTANT, agreed w/resident/PA/HEALTH ASSISTANT, reviewed EMR data (avail) Attending Assessment/Plan: 87M PMH CAD S/P CABG, bradycardia S/P pacemaker admitted for mechanical fall and left hip fracture s/p repair on 11/03/17. Patient doing well, no complaints. Hgb down to 7.4, asymptomatic, vitals stable. 1. Left hip fracture, closed 2. Fall, initial 3. Post-operative blood loss anemia 4. History of CAD Plan - Continue on general medicine - Transfuse 1 unit pRBC - Recheck CBC tomorrow, no BEP - Continue home medications, holding Aggrenox - Start Eliquis tomorrow for DVT PPx, will speak with cardiology about restarting Aggrenox concominantly with Eliquis - Anticipated discharge to STR tomorrow
--- NOTE | 2017-11-04 07:37 | PN- Orthopedic ---
Subjective Subjective: pod#1 s/p left hip hemiarthroplasty sitting up in bed, in good spirits denies cp, sob, no n+v with diet Objective Vital Signs and I&Os Vital Signs Date Time Temp Pulse Resp B/P B/P Pulse O2 O2 Flow FiO2 Mean Ox Delivery Rate / 0605 66 100/56 11/04 0452 97.8 60 20 98/48 94 Room Air 11/03 2237 64 11/03 2020 98.7 58 20 135/70 94 Room Air 11/03 1433 98.7 58 20 144/60 93 11/03 1246 Room Air Room Air Intake & Output 11/04 0811/04 0000 11/03 1600 11/03 0800 11/03 0000 11/02 1600 Intake Total 765 300 510 600 600 Output Total 400 100 300 325 825 500 Balance 365 200 210 275 -225 -500 Intake, IV 525 450 600 600 Intake, Oral 240 300 60 Output, Urine 400 100 300 325 825 500 Patient 154 lb Weight Weight Reported by Patient Measurement Method Physical Exam: cv: rrr lungs: clear abd: soft, +bs ext: left thigh soft drsg intact, dry distal cms intact bilat no calf tenderness Assessment/Plan Assessment/Plan ortho stable plan dvt prophylaxis per medical team, will need for one month oob wbat left le posterior hip precautions per pt will need str upon d/c
[2017-11-04 07:57] LABS: ABSOLUTE BASOPHIL COUNT 0 /CUMM (0.0-0.2); ABSOLUTE EOSINOPHIL COUNT 0 /CUMM (0.0-0.7); ABSOLUTE GRANULOCYTE CT 5.8 /CUMM (1.4-6.5); ABSOLUTE LYMPH COUNT 0.5 /CUMM (1.2-3.4); ABSOLUTE MONOCYTE COUNT 0.6 /CUMM (0.10-0.60); BASOPHIL % 0.2 % (0.0-2.0)
[2017-11-04 08:27] LABS: EOSINOPHIL % 0 % (0-5); MEAN CORPUSCULAR HGB 33.3 PG (27.0-31.0); MEAN CORPUSCULAR HGB CONC 33.2 G/DL (33.0-37.0); MEAN CORPUSCULAR VOLUME 100.4 FL (80.0-94.0); MEAN PLATELET VOLUME 9.4 FL (7.4-10.4); PLATELET COUNT 90 /CUMM (130-400); RBC DISTRIBUTION WIDTH 12.6 % (11.5-14.5); RED BLOOD CELL CT 2.21 /CUMM (4.70-6.10)
[2017-11-04 08:43] LABS: HEMATOCRIT 22.2 % (42-52)
[2017-11-04 09:01] LABS: GRANULOCYTE % 83.5 % (42.2-75.2)
--- NOTE | 2017-11-04 09:26 | PN- Orthopedic ---
Subjective Subjective: patient doing well POD#1 s/p hemiarthroplasty left hip will be out of bed today WBAT .Minimal pain His H/H has dropped due to hydration and mild blood loss to 7.0/22 Objective Vital Signs and I&Os Vital Signs Date Time Temp Pulse Resp B/P B/P Pulse O2 O2 Flow FiO2 Mean Ox Delivery Rate 11/04 0605 66 100/56 11/04 0452 97.8 60 20 98/48 94 Room Air 11/03 2237 64 11/03 2020 98.7 58 20 135/70 94 Room Air 11/03 1433 98.7 58 20 144/60 93 11/03 1246 Room Air Room Air Intake & Output 11/04 1600 11/04 0800 11/04 0000 11/03 1600 11/03 0000 Intake Total 765 300 510 600 600 Output Total 400 100 300 325 825 Balance 365 200 210 275 -225 Intake, IV 525 450 600 600 Intake, Oral 240 300 60 Output, Urine 400 100 300 325 825 Physical Exam: hip incision clean dressing ok neuro intact hip moves nicely. will most likely need 1 unit PRBC with his cardiac history. Assessment/Plan Assessment/Plan doing well post op with his cardiac history would have lower threshold for transfusing 1 unit PRBC.should be OOB today WBAT , continue anticoagulation finish out antibiotics today. Core Measures Venous Thromboembolism VTE Risk Factors Immobility No Mechanical VTE Prophylaxis d/t N/A MechProphylax Ordered No VTE Pharm Prophylaxis d/t NA PharmProphylax ordered Attending MD Review Statement Attending Statement Attending MD Statement: examined this patient
--- NOTE | 2017-11-04 11:14 | PN- Cardiology ---
Subjective Subjective: The patient tolerated his surgery well. He is back on general medicine floor. He is not having a lot of pain. He states he had a hard time trying to get out of bed with physical therapy this morning but they will come back this afternoon. He has no chest pain or shortness of breath. His H&H are low today and he is going to get some blood. Objective Vital Signs and I&Os Vital Signs Date Time Temp Pulse Resp B/P B/P Pulse O2 O2 Flow FiO2 Mean Ox Delivery Rate 11/04 0605 66 100/56 11/04 0452 97.8 60 20 98/48 94 Room Air 11/03 2237 64 11/03 2020 98.7 58 20 135/70 94 Room Air 11/03 1433 98.7 58 20 144/60 93 11/03 1246 Room Air Room Air Intake & Output 11/04 1600 11/04 0800 11/04 0000 11/03 1600 11/03 0800 11/03 0000 Intake Total 765 300 510 600 600 Output Total 400 100 300 325 825 Balance 365 200 210 275 -225 Intake, IV 525 450 600 600 Intake, Oral 240 300 60 Output, Urine 400 100 300 325 825 Physical Exam: He is in no distress HEENT exam normal Chest clear to limited exam Heart regular rhythm, no murmurs Extremities no edema Current Medications: Current Medications Sig/Chrissy Start time Last Medication Dose Route Stop Time Status Admin Acetaminophen 650 MG Q6P PRN 11/02 0015 AC PO Acetaminophen 1,000 MG Q6P PRN 11/02 0015 AC 11/03 IV 1305 Atorvastatin Calcium 40 MG 1700 11/02 1700 AC 11/03 PO 2236 Cefazolin Sodium 2 GM IQ8 11/04 0000 DC 11/04 N/A 1 UNIT IV 11/04 08 0817 Dexamethasone 4 MG .STK-MED ONE 11/03 1623 DC IM 11/03 1624 Fentanyl Citrate 250 MCG .STK-MED ONE 11/03 1623 DC IM 11/03 162 Heparin Sodium 5,000 UNIT Q8 11/02 0600 AC 11/04 (Porcine) SC 0553 Hydromorphone HCl 2 MG .STK-MED ONE 11/03 1622 DC IM 11/03 1623 Metoprolol Tartrate 75 MG BID 11/02 2200 AC 11/03 PO 2236 Midazolam HCl 2 MG .STK-MED ONE 11/03 1623 DC IM 11/03 1624 Morphine Sulfate 2 MG Q4P PRN 11/02 14 AC 11/02 IV 2018 Ondansetron HCl 8 MG .STK-MED ONE 11/03 1623 DC IM 11/03 1624 Sodium Chloride 1,000 ML Q13H 11/02 14 AC 11/03 IV 1530 Results Last 48 Hrs of Labs/Mics: Laboratory Tests 11/04/17 0653: Anion Gap 10, Estimated GFR 48 L, BUN/Creatinine Ratio 25.7 H, CBC w Diff NO MAN DIFF REQ, RBC 2.21 L, MCV 100.4 H, MCH 33.3 H, RDW 12.6, MPV 9.4, Gran % 83.5 H, Lymphocytes % 7.7 L, Monocytes % 8.6, Eosinophils % 0, Basophils % 0.2 , Absolute Granulocytes 5.8, Absolute Lymphocytes 0.5 L, Absolute Monocytes 0.6 , Absolute Eosinophils 0, Absolute Basophils 0, PUBS MCHC 33.2 11/03/17 0725: Anion Gap 10, Estimated GFR 48 L, BUN/Creatinine Ratio 21.4, CBC w Diff NO MAN DIFF REQ, RBC 2.71 L, MCV 100.2 H, MCH 34.0 H, RDW 13.1, MPV 8.8, Gran % 69.9 , Lymphocytes % 17.6 L, Monocytes % 10.1 H, Eosinophils % 2.0, Basophils % 0.4 , Absolute Granulocytes 3.8, Absolute Lymphocytes 1.0 L, Absolute Monocytes 0.6 , Absolute Eosinophils 0.1, Absolute Basophils 0, PUBS MCHC 34.0 Assessment/Plan Assessment/Plan The patient tolerated his surgery well. His H&H are low and he should receive at least one unit of blood. He can be returned to his usual medications. He should be on the standard orthopedic anticoagulation protocol. Please call for further cardiology input. Continue telemetry? Not applicable
[2017-11-04 11:37] LABS: ABSOLUTE BASOPHIL COUNT 0 /CUMM (0.0-0.2); ABSOLUTE EOSINOPHIL COUNT 0 /CUMM (0.0-0.7); ABSOLUTE GRANULOCYTE CT 5.6 /CUMM (1.4-6.5); ABSOLUTE LYMPH COUNT 0.7 /CUMM (1.2-3.4); ABSOLUTE MONOCYTE COUNT 0.6 /CUMM (0.10-0.60); BASOPHIL % 0.2 % (0.0-2.0); EOSINOPHIL % 0.1 % (0-5); GRANULOCYTE % 80.9 % (42.2-75.2); HEMATOCRIT 22.6 % (42-52); MEAN CORPUSCULAR HGB 33.3 PG (27.0-31.0); MEAN CORPUSCULAR HGB CONC 33.7 G/DL (33.0-37.0); MEAN CORPUSCULAR VOLUME 98.9 FL (80.0-94.0); MEAN PLATELET VOLUME 8.7 FL (7.4-10.4); PLATELET COUNT 94 /CUMM (130-400); RBC DISTRIBUTION WIDTH 12.9 % (11.5-14.5); RED BLOOD CELL CT 2.29 /CUMM (4.70-6.10)
[2017-11-04 13:35] VITALS: BP 106/42
--- NOTE | 2017-11-04 14:19 | Discharge Summary ---
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 Problem list: 1. Left hip fracture, closed 2. Fall, and unsteady gait 3. Post-operative blood loss anemia 4. History of CAD Hospital course: Patient was admitted to general medicine floor, patient cleared for orthopedic surgery by associate professor of psychology Dr. Singer, we hold the patient Aggrenox and echocardiogram ordered postop for evaluation. Left hip hemiarthroplasty done. Postop the patient H&H drop and he received 1 unit of blood, his target was above 8 due to the underlying cardiac problems. Patient received additional to unit 2 packed RBCs his H&H on discharge his hemoglobin above 9. Surgical site being evaluated by orthopedic team and we obtain ultrasound to rule out any pelvic hematoma it came back negative for any collection. Patient will need to follow-up with his primary care doctor and to obtain a CBC 2-3 days after discharge. Patient was started after that on Eliquis 2.5 BID and he will follow -up with his associate professor of psychology and primary care doctor to be restarted on Aggrenox. Imaging: Echocardiogram CONCLUSIONS Mild concentric left ventricular hypertrophy. Normal left ventricular ejection fraction visually estimated at >65 Abnormal septal motion consistent with pacemaker activation. Normal left ventricular diastolic filling pattern for age. Mild left atrial dilatation. Mild thickening/calcification of the mitral valve leaflets. Mild mitral annular calcification. [id number] mitral regurgitation. Focal thickening of the aortic valve cusps. No aortic stenosis. Trace aortic regurgitation. Right ventricular systolic pressure estimated to be elevated at 40- 45 mmHg. Catheter/pacemaker wire in the right ventricular cavity. Catheter/pacemaker wire in the right atrial appendage. EXAM TYPE: CAT - CT CERV SPINE WO IV CONTRAST; CT HEAD WO IV CONTRAST EXAMINATION: CT OF THE HEAD AND CERVICAL SPINE WITHOUT CONTRAST CLINICAL INFORMATION: Fall. Distracting injury. On Aggrenox. Evaluate for intracranial hemorrhage. COMPARISON: Prior head CT 04/21/2011 TECHNIQUE: Contiguous axial imaging was performed from the vertex to the thoracic inlet, through the head and cervical spine, without intravenous administration of contrast. Coronal and sagittal reformatted images through the cervical spine were obtained on the technologists workstation. Total exam dose-length product: 654 mGy-cm FINDINGS: Head: Motion artifact degrades imaging of the posterior fossa but those images were repeated. No acute intracranial hemorrhage. No extra-axial fluid collection. Left high parietal encephalomalacia consistent with remote prior ischemia is again seen. Otherwise, ling-white differentiation is maintained and there is otherwise normal parenchymal attenuation. Symmetric, concordant ventricles and sulci; no hydrocephalus. No mass effect or midline shift. The osseous structures and soft tissues are normal. No acute sinusitis. Cervical spine: There is counterclockwise, rightward rotation of C1 on C2. No fracture seen. Normal sagittal alignment. Normal prevertebral soft tissues. There is normal T level facet arthropathy moderate on the left at C2-3 through C4-5 and severe on the right at C3-4 and C4-5. No jumped or perched facets are seen. There is multilevel loss of disc height with anterior osteophytosis, most notable at C5-6. Thyroid homogeneous with no nodules seen. Mild upper lobe emphysema. No focal consolidation or mass. Thyroid is homogeneous. No cervical lymphadenopathy, mass, or fluid collection. IMPRESSION: No acute intracranial pathology. Specifically, no intracranial hemorrhage seen. Left high parietal encephalomalacia consistent with remote prior ischemia. There is rightward rotation of C1 on C2. This could be positional or could be due to rotatory subluxation. Recommend correlation with physical exam. There is extensive cervical spondylosis but no fracture is seen. EXAMINATION: XR PELVIS XR LET HIP CLINICAL INFORMATION: Fall. Pain. COMPARISON: None TECHNIQUE: AP view of the pelvis. AP and crosstable lateral views of left hip FINDINGS: There is a comminuted, displaced left subcapital femoral neck fracture. The distal left femur is subluxed cephalad relative to the femoral head which remains normally positioned within the acetabulum. There is mild degenerative arthrosis of the bilateral hips with superior joint space narrowing. Elsewhere, no pelvic fracture is seen. The right hip and pubic rami are intact. There is degenerative arthrosis of the bilateral sacroiliac joints and lower lumbar degenerative changes. IMPRESSION: Comminuted, displaced left subcapital femoral neck fracture with the distal femur superiorly subluxed relative to the femoral head. EXAMINATION: LEFT LOWER EXTREMITY VENOUS DOPPLER ULTRASOUND LIMITED PELVIC ULTRASOUND CLINICAL INFORMATION: Perioperative drop in H\T\H and left thigh swelling with pain and stiffness. Please look for thigh and pelvic hematoma. Presumptive diagnosis of DVT of left leg and hematoma of the left thigh. COMPARISON: None. TECHNIQUE: Doppler spectral analysis and color flow Doppler imaging was performed of the left lower extremity. Compression and augmentation maneuvers were performed. FINDINGS: Left lower extremity venous Doppler ultrasound and pelvic ultrasound: The left common femoral vein, greater saphenous vein takeoff, femoral vein, and popliteal vein are normally compressible with normal augmentation responses and phasic changes seen with Doppler imaging. The midcalf peroneal and posterior tibial veins are not adequately assessed. No popliteal cyst is seen. Evaluation of the soft tissues of the left thigh is limited by a bandage and patient's inability to move his legs. There is prominence superficial soft tissue swelling seen. No defined focal fluid collection or hematoma is noted in the exposed segments of the left thigh. In the pelvis, mild superficial edema is seen in the soft tissues. In the pelvis itself, evaluation is limited due to extensive bowel gas obscuring assessment. The bladder is fully distended and appears unremarkable. Pelvic veins are partially imaged and appear intact. IMPRESSION: 1. No evidence of deep venous thrombosis in the left lower extremity. 2. Soft tissue swelling is seen over the pelvis and left thigh without defined soft tissue hematoma or other fluid collection seen. As discussed above, evaluation of the left thigh is limited by overlying bandage. Allergies: Coded Allergies: Penicillins (UNKNOWN 11/01/17) Pertinent Lab Results: Laboratory Tests 11/06 11/05 0707 1703 Hematology CBC w Diff NO MAN DIFF REQ NO MAN DIFF REQ WBC (4.8 - 10.8 /CUMM) 6.3 5.4 RBC (4.70 - 6.10 /CUMM) 2.78 L 2.32 L Hgb (14.0 - 18.0 G/DL) 9.0 L 7.6 L Hct (42 - 52 %) 26.8 L 22.6 L MCV (80.0 - 94.0 FL) 96.6 H 97.3 H MCH (27.0 - 31.0 PG) 32.4 H 32.6 H RDW (11.5 - 14.5 %) 14.8 H 14.7 H Plt Count (130 - 400 /CUMM) 97 L 93 L MPV (7.4 - 10.4 FL) 8.5 8.8 Gran % (42.2 - 75.2 %) 63.3 57.8 Lymphocytes % (20.5 - 51.1 %) 24.0 27.7 Monocytes % (1.7 - 9.3 %) 11.0 H 11.5 H Eosinophils % (0 - 5 %) 1.6 2.5 Basophils % (0.0 - 2.0 %) 0.1 0.5 Absolute Granulocytes (1.4 - 6.5 /CUMM) 4.0 3.1 Absolute Lymphocytes (1.2 - 3.4 /CUMM) 1.5 1.5 Absolute Monocytes (0.10 - 0.60 /CUMM) 0.7 H 0.6 Absolute Eosinophils (0.0 - 0.7 /CUMM) 0.1 0.1 Absolute Basophils (0.0 - 0.2 /CUMM) 0 0 PUBS MCHC (33.0 - 37.0 G/DL) 33.5 33.5 11/05 11/04 0735 2009 Hematology CBC w Diff NO MAN DIFF REQ NO MAN DIFF REQ WBC (4.8 - 10.8 /CUMM) 6.2 7.9 RBC (4.70 - 6.10 /CUMM) 2.23 L 2.44 L Hgb (14.0 - 18.0 G/DL) 7.4 *L 8.0 L Hct (42 - 52 %) 21.9 L 23.9 L MCV (80.0 - 94.0 FL) 98.1 H 97.7 H MCH (27.0 - 31.0 PG) 33.1 H 32.8 H RDW (11.5 - 14.5 %) 14.4 14.4 Plt Count (130 - 400 /CUMM) 97 L 101 L MPV (7.4 - 10.4 FL) 8.7 8.7 Gran % (42.2 - 75.2 %) 65.2 67.0 Lymphocytes % (20.5 - 51.1 %) 22.3 20.8 Monocytes % (1.7 - 9.3 %) 10.8 H 11.2 H Eosinophils % (0 - 5 %) 1.2 0.7 Basophils % (0.0 - 2.0 %) 0.5 0.3 Absolute Granulocytes (1.4 - 6.5 /CUMM) 4.1 5.3 Absolute Lymphocytes (1.2 - 3.4 /CUMM) 1.4 1.6 Absolute Monocytes (0.10 - 0.60 /CUMM) 0.7 H 0.9 H Absolute Eosinophils (0.0 - 0.7 /CUMM) 0.1 0.1 Absolute Basophils (0.0 - 0.2 /CUMM) 0 0 PUBS MCHC (33.0 - 37.0 G/DL) 33.7 33.6 11/04 11/04 1111 0653 Chemistry Sodium (137 - 145 mmol/L) 143 Potassium (3.5 - 5.1 mmol/L) 4.4 Chloride (98 - 107 mmol/L) 111 H Carbon Dioxide (22 - 30 mmol/L) 21 L Anion Gap (5 - 16) 10 BUN (9 - 20 mg/dL) 36 H Creatinine (0.7 - 1.2 mg/dL) 1.4 H Estimated GFR (>60 ml/min) 48 L BUN/Creatinine Ratio (7 - 25 %) 25.7 H Hematology CBC w Diff NO MAN DIFF REQ NO MAN DIFF REQ WBC (4.8 - 10.8 /CUMM) 7.0 7.0 RBC (4.70 - 6.10 /CUMM) 2.29 L 2.21 L Hgb (14.0 - 18.0 G/DL) 7.6 L 7.4 *L Hct (42 - 52 %) 22.6 L 22.2 L MCV (80.0 - 94.0 FL) 98.9 H 100.4 H MCH (27.0 - 31.0 PG) 33.3 H 33.3 H RDW (11.5 - 14.5 %) 12.9 12.6 Plt Count (130 - 400 /CUMM) 94 L 90 L MPV (7.4 - 10.4 FL) 8.7 9.4 Gran % (42.2 - 75.2 %) 80.9 H 83.5 H Lymphocytes % (20.5 - 51.1 %) 10.5 L 7.7 L Monocytes % (1.7 - 9.3 %) 8.3 8.6 Eosinophils % (0 - 5 %) 0.1 0 Basophils % (0.0 - 2.0 %) 0.2 0.2 Absolute Granulocytes (1.4 - 6.5 /CUMM) 5.6 5.8 Absolute Lymphocytes (1.2 - 3.4 /CUMM) 0.7 L 0.5 L Absolute Monocytes (0.10 - 0.60 /CUMM) 0.6 0.6 Absolute Eosinophils (0.0 - 0.7 /CUMM) 0 0 Absolute Basophils (0.0 - 0.2 /CUMM) 0 0 PUBS MCHC (33.0 - 37.0 G/DL) 33.7 33.2 Disposition Summary Disposition Principal Diagnosis: 1. Left hip fracture, closed 2. Fall, and unsteady gait Additional Diagnosis: Post-operative blood loss anemia History of CAD Discharge Disposition: SNF Discharge Instructions General Discharge Information Code Status: Do Not Resucitate/Intubat Patient's Diet: Heart healthy diet Patient's Activity: As torelated Follow-Up Instructions/Appts: Follow up with pcp in one week with CBC to be rechecked. Follow up with orthopedic in one week. Follow up with your associate professor of psychology in one week. Follow up with your neurologist in one week. Talk to your associate professor of psychology and neurologist about resuming the aggrenox after 6 weeks of eliquis anticoagulation. Medications at Discharge Discharge Medications: Stop taking the following medications: Dipyridamole W/ Aspirin (Aggrenox 25 MG-200 MG Capsule) 25 MG/200 MG CAP ORAL TWICE DAILY Qty = 180 Continue taking these medications: Atorvastatin Calcium (Lipitor) 40 MG TAB 1 Tablet ORAL DAILY Qty = 90 Metoprolol Tartrate (Metoprolol Tartrate) 50 MG TAB 1.5 Tablet ORAL TWICE DAILY Qty = 180 Ramipril (Altace) 5 MG CAP 1 Capsule ORAL DAILY Qty = 90 Meclizine Hydrochloride (Meclicot) 12.5 MG TAB 1 Tablet ORAL Q6H as needed for DIZZINESS Qty = 12 Start taking the following new medications: Acetaminophen (Tylenol) 325 MG TABLET 1 Tablet ORAL EVERY SIX HOURS NEEDED as needed for PAIN SCALE 7-10 ( SEVERE) Qty = 60 No Refills Apixaban (Eliquis) 2.5 MG TABLET 1 Tablet ORAL TWICE DAILY Qty = 60 No Refills Instructions: Anticoagulation to prevent DVT after hip surgery for 6 weeks. Bisacodyl (Bisacodyl) 5 MG TABLET.DR 1 Tablet ORAL DAILY as needed for CONSTIPATION Qty = 30 No Refills Polyethylene Glycol 3350 (Miralax) 17 GRAM/DOSE POWDER 17 Gram ORAL DAILY as needed for CONSTIPATION Days = 14 No Refills Oxycodone HCl/Acetaminophen (Percocet 10-325 MG Tablet) 10 MG-325 MG TABLET 1 Tablet ORAL EVERY 6 HOURS NEEDED as needed for pain Qty = 60 No Refills Copies To: Estuardo CAMPOS,Raghav Cardoso; Jevon CAMPOS,Ye; Lucrecia CAMPOS,Guzman De Oliveira
[2017-11-04 20:53] LABS: ABSOLUTE BASOPHIL COUNT 0 /CUMM (0.0-0.2); ABSOLUTE EOSINOPHIL COUNT 0.1 /CUMM (0.0-0.7); ABSOLUTE GRANULOCYTE CT 5.3 /CUMM (1.4-6.5); ABSOLUTE LYMPH COUNT 1.6 /CUMM (1.2-3.4); ABSOLUTE MONOCYTE COUNT 0.9 /CUMM (0.10-0.60); BASOPHIL % 0.3 % (0.0-2.0); EOSINOPHIL % 0.7 % (0-5); HEMATOCRIT 23.9 % (42-52); MEAN CORPUSCULAR HGB 32.8 PG (27.0-31.0); MEAN CORPUSCULAR HGB CONC 33.6 G/DL (33.0-37.0); MEAN CORPUSCULAR VOLUME 97.7 FL (80.0-94.0); MEAN PLATELET VOLUME 8.7 FL (7.4-10.4); PLATELET COUNT 101 /CUMM (130-400); RBC DISTRIBUTION WIDTH 14.4 % (11.5-14.5); RED BLOOD CELL CT 2.44 /CUMM (4.70-6.10); WHITE BLOOD CELL COUNT 7.9 /CUMM (4.8-10.8)
[2017-11-04 22:50] VITALS: BP 112/50
[2017-11-05] MEDS ORDERED: TYLENOL325 M1 PO (05:39)
--- NOTE | 2017-11-05 05:48 | Patient Discharge Instructions ---
Discharge Instructions General Discharge Information You were seen/treated for: Left hip fracture S/P left hip Hemiarthoplasty Acute on chronic anemia Watch for these problems: Pain in left hip, Swelling of leg, Bleeding from wound, numbness of leg, cold limb and difficulty in walking. If you experience any of these symptoms come to ED or call to your pcp. Special Instructions: Follow up with pcp in one week. Follow up with orthopedic in one week. Follow up with your drywall hanger helper in one week. Follow up with your neurologist in one week. Talk to your drywall hanger helper and neurologist about resuming the aggrenox after 6 weeks of eliquis anticoagulation. -Follow up CBC 2-3 days as outpatient for H&H. -Follow-up with urologist as new patient, straight cath protocol. Diet Recommended Diet: Heart Healthy Activity Activity Self Limited: Yes Acute Coronary Syndrome Inclusion Criteria At DC or during hospital stay patient has or had the following: ACS DIAGNOSIS No Discharge Core Measures Meds if any: Prescribed or Continued at Discharge Meds if any: NOT Prescribed or Continued at Discharge Congestive Heart Failure Inclusion Criteria At DC or during hospital stay patient has or had the following: CHF DIAGNOSIS No Discharge Core Measures Meds if any: Prescribed or Continued at Discharge Meds if any: NOT Prescribed or Continued at Discharge Cerebrovascular accident Inclusion Criteria At DC or during hospital stay patient has or had the following: CVA/TIA Diagnosis No Discharge Core Measures Meds if any: Prescribed or Continued at Discharge Meds if any: NOT Prescribed or Continued at Discharge Venous thromboembolism Inclusion Criteria VTE Diagnosis No VTE Type NONE VTE Confirmed by (Test) NONE Discharge Core Measures - Per Current guidelines, there needs to be overlap - treatment for the first 5 days of Warfarin therapy. - If discharged on Warfarin prior to 5 days of - overlap therapy, the patient will need to be - assessed for post discharge needs including - *Post discharge parental anticoagulation - *Warfarin and/or parental anticoagulation education - *Follow up date to check INR post discharge At least 5 days overlap therapy as Inpatient No Meds if any: Prescribed or Continued at Discharge Note: Overlap Therapy is Warfarin and Anticoagulant Meds if any: NOT Prescribed or Continued at Discharge
[2017-11-05 05:54] VITALS: BP 118/58
--- NOTE | 2017-11-05 07:31 | PN- Housestaff ---
BenjiSeibert 11/05/17 0731: Subjective Follow-up For: Left hip fracture S/P left hemiarthroplasty. Acute on chronic anemia Thrombocytopenia Subjective: Patient remained afebrile overnight. Seen and examined this morning. Patient reported having shooting 10/10 pain in left leg. With stiffness. Patient denied any chest pain, short of breath, nausea, vomiting, chills, fever, abdominal pain and dysuria. He is able to urinate normally. He is able to move his leg distal neurovascular bundle is intact. There is no soakage of dressing. Patient received one blood transfusion yesterday. Review of Systems Constitutional: Reports: no symptoms. EENTM: Reports: no symptoms. Cardiovascular: Reports: no symptoms. Respiratory: Reports: no symptoms. Gastrointestinal: Reports: no symptoms. Genitourinary: Reports: no symptoms. Musculoskeletal: Reports: see HPI. Neurological/Psychological: Reports: no symptoms. Objective Last 24 Hrs of Vital Signs/I&O Vital Signs Date Time Temp Pulse Resp B/P B/P Pulse O2 O2 Flow FiO2 Mean Ox Delivery Rate 11/05 0554 98.9 63 20 118/58 93 Room Air 11/04 2250 98.4 70 20 112/50 92 Room Air 11/04 1335 98.9 74 18 106/42 93 Room Air Intake & Output 11/05 1600 11/05 0800 11/05 0000 Intake Total 225 Output Total 425 550 Balance -425 -325 Intake, IV 225 Output, Urine 425 550 Physical Exam General Appearance: Alert, Oriented X3, Cooperative Skin Temp/Moisture Exam: Warm/Dry HEENT: Atraumatic, PERRLA, EOMI Neck: Supple Cardiovascular: Normal S1, Normal S2 Lungs: Clear to Auscultation Abdomen: Soft, No Tenderness Neurological: Normal Speech, Normal Tone Extremities: No Edema, No able t move his left leg due to pain. Last 24 Hrs of Lab/Olu Results Last 24 Hrs of Labs/Mics: Laboratory Tests 11/05/17 0735: CBC w Diff Pending, WBC Pending, RBC Pending, Hgb Pending, Hct Pending, MCV Pending, MCH Pending, RDW Pending, Plt Count Pending, MPV Pending, PUBS MCHC Pending 11/04/172009: CBC w Diff NO MAN DIFF REQ, RBC 2.44 L, MCV 97.7 H, MCH 32.8 H, RDW 14.4, MPV 8.7, Gran % 67.0, Lymphocytes % 20.8, Monocytes % 11.2 H, Eosinophils % 0.7, Basophils % 0.3, Absolute Granulocytes 5.3, Absolute Lymphocytes 1.6, Absolute Monocytes 0.9 H, Absolute Eosinophils 0.1, Absolute Basophils 0, PUBS MCHC 33.6 11/04/17 1111: CBC w Diff NO MAN DIFF REQ, RBC 2.29 L, MCV 98.9 H, MCH 33.3 H, RDW 12.9, MPV 8.7, Gran % 80.9 H, Lymphocytes % 10.5 L, Monocytes % 8.3, Eosinophils % 0.1, Basophils % 0.2, Absolute Granulocytes 5.6, Absolute Lymphocytes 0.7 L, Absolute Monocytes 0.6, Absolute Eosinophils 0, Absolute Basophils 0, PUBS MCHC 33.7 Assessment/Plan Assessment: 87 YO M was PMH significant for [place] status post CABG 1999, history of bradycardia status post pacemaker 2008, 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 Left hip fracture after the fall status post left hip hemiarthroplasty: -Postop day 1 after left hip hemiarthroplasty. -Pain management according to pain pathway. -Physical therapy. -We'll follow the orthopedic recommendations. -We'll follow the H&H if there is any drop in H&H. This morning patient has Hb 7.4 compared to 9.2 yesterday. We will repeat cbc again to check if it's duration of effect. If it's not delusional and 2 drop in H&H we will transfuse the patient to keep his an H&H above 8. We will try to find the source of bleeding. -We will start Eliquis today for anticoagulation. We will keep holding his aggrenox then we will resume it after 6 weeks of Eliquis. For resuming Aggrenox and stopping Eliquis patient will follow his entry specialist and orthopedic surgeon as outpatient and they will decide accordingly. Acute on chonic anemia: -Patient developed acute on chronic anemia probably multifactorial considering CKD and recent hip surgery. -Considering his signiicant cardiac history we will transfuse him to keep the Hb >8. -patient's H&H droped again to 7.4/21.9. so we will hold his anticoagulation for now and will transfuse him again today. Heparin is also on hold considering thrombocytopenia. We will check post transfusion H&H. Thrombocytopenia: -patient has thrombocytopenia so we will hold the heparin. -we will avoid all medications that can decrease the number or function of platelets. -we will follow the cbc for platelet count. Hyperkalemia:(RESOLVED) -Received 1 dose of by mouth Kayexalate -This morning potassium is 4.6 CKD: -Avoid nephrotoxic agents. -Patient has baseline creatinine level. QTC prolongation: -Monitor EKG -Avoid QTC prolonging agents. History of coronary artery disease status post CABG in 1999: -Continue metoprolol and statin. History of TIA/CVA on Aggrenox -Will hold Aggrenox. Right now patient will be on Eliquis for 6 anticoagulation to prevent DVT after the surgery. History of hypertension, hyperlipidemia: -Continue metoprolol and statin. Boderline Diabetes: -ACCU checks DVT prophylaxis: ALPS only due to thrombocytopenia DVT prophylaxis: DNR/DNI Problem List: 1. Fracture of femoral neck, left, closed 2. Anemia Pain Ratin Pain Location: left leg Pain Goal: Pain 4 or less Pain Plan: tylenol for mild pain morphine for severe pain Tomorrow's Labs & Rationales: cbc Consulting Request: Consulting Specialty: Orthopedics Stella Black MD 11/05/17 1041: Attending Review Statement Attending Statement Attending MD Statement: examined this patient, discuss w/resident/PA/REGULAR SENIOR CARE PROVIDER, agreed w/resident/PA/REGULAR SENIOR CARE PROVIDER, reviewed EMR data (avail) Attending Assessment/Plan: 87M PMH CAD S/P CABG, bradycardia S/P pacemaker admitted for mechanical fall and left hip fracture s/p repair on 11/03/17. Patient doing well, no complaints. Hgb down to 7.4, asymptomatic, vitals stable. 1. Left hip fracture, closed 2. Fall, initial 3. Post-operative blood loss anemia 4. History of CAD Plan - Continue on general medicine - Transfuse 1 unit pRBC - Recheck CBC tomorrow, no BEP - Continue home medications, holding Aggrenox - Start Eliquis tomorrow for DVT PPx, Aggrenox to be started in 6 weeks once Eliquis course is complete - Anticipated discharge to STR tomorrow
--- NOTE | 2017-11-05 07:44 | PN- Orthopedic ---
Subjective Subjective: Awake, alert No complaints overnight Worked with PT yesterday - wbat Pain is well controlled with meds Objective Vital Signs and I&Os Vital Signs Date Time Temp Pulse Resp B/P B/P Pulse O2 O2 Flow FiO2 Mean Ox Delivery Rate 11/05 0554 98.9 63 20 118/58 93 Room Air 11/04 2250 98.4 70 20 112/50 92 Room Air 11/04 1335 98.9 74 18 106/42 93 Room Air Intake & Output 11/05 0811/05 0000 11/04 1600 11/04 0811/04 0000 11/03 1600 Intake Total 225 1100 765 300 510 Output Total 425 550 450 400 100 300 Balance -425 -325 650 365 200 210 Intake, IV 225 600 525 450 Intake, Oral 500 240 300 60 Output, Urine 425 550 450 400 100 300 Physical Exam: vss, afebrile General: alert and oriented times three Ext: warm, no edema, normosensate BLE, good 5/5 PERCY BLE although pain with movement to LLE - no calf tenderness, ALPS in place Wd: dressing changed - brian intact, clean and dry Current Medications: Current Medications Sig/Chrissy Start time Last Medication Dose Route Stop Time Status Admin Acetaminophen 650 MG .STK-MED ONE 11/04 1636 DC PO 11/04 1637 Acetaminophen 650 MG Q6P PRN 11/02 001 AC 11/04 PO 1639 Acetaminophen 1,000 MG Q6P PRN 11/02 001 AC 11/03 IV 1305 Atorvastatin Calcium 40 MG 1700 11/02 1700 AC 11/04 PO 1639 Cefazolin Sodium 2 GM IQ8 11/04 0000 DC 11/04 N/A 1 UNIT IV 11/04 0829 0817 Heparin Sodium 5,000 UNIT Q8 11/02 0600 11/05 (Porcine) SC 0550 Metoprolol Tartrate 75 MG BID 11/02 2200 AC 11/03 PO 2236 Morphine Sulfate 2 MG Q4P PRN 11/02 001 AC 11/05 IV 0551 Sodium Chloride 1,000 ML Q13H 11/02 001 11/05 IV 0552 Assessment/Plan Assessment/Plan 87 yo male s/p L hip harmeet pod 2 dressing changed Further dressing changes per nursing - daily dry dressing change and prn Continue PT - WBAT Pt needs to be anticoagulated when okay with medical staff - was taking aggrenox pre-op DC planning - STR once cleared for discharge Core Measures Venous Thromboembolism VTE Risk Factors Immobility No Mechanical VTE Prophylaxis d/t N/A MechProphylax Ordered No VTE Pharm Prophylaxis d/t NA PharmProphylax ordered
--- NOTE | 2017-11-05 09:16 | ECHOCARDIOGRAM REPORT ---
MUKUL ZAVALA Age: 87 : 1930 Gender: M Exam Date: 11/04/2017 19:58 Exam Location: [address] [place] [address] Ht (in): 71 Wt (lb): 154 BSA: 1.87 BP: 128 / 52 Ordering Physician: Lian Bernstein MD Referring Physician: Guzman Singer MD Chief, SoC Technologist: Latoya Christianson [facility] Room Number: [id number] Indications: CARDIOMYOPATHY Rhythm: Paced Technical Quality: Good FINDINGS Left Ventricle Normal size left ventricle. Mild concentric left ventricular hypertrophy. Normal left ventricular ejection fraction visually estimated at >65 %. No obvious regional wall motion abnormalities. Abnormal septal motion consistent with pacemaker activation. Normal left ventricular diastolic filling pattern for age. Right Ventricle The right ventricle is normal in size and function. Catheter/pacemaker wire in the right ventricular cavity. Right Atrium The right atrium is normal in size. Catheter/pacemaker wire in the right atrial appendage. Left Atrium Mild left atrial dilatation. Mitral Valve Mild thickening/calcification of the mitral valve leaflets. Mild mitral annular calcification. [id number] mitral regurgitation. Aortic Valve Focal thickening of the aortic valve cusps. No aortic stenosis. Trace aortic regurgitation. Tricuspid Valve No tricuspid stenosis, regurgitation or prolapse. Mild tricuspid regurgitation. Right ventricular systolic pressure estimated to be elevated at 40-45 mmHg. Pulmonic Valve Structurally normal pulmonic valve. There is no pulmonic regurgitation. Pericardium Normal pericardium without effusion. No pleural effusion. Great Vessels Normal aortic root dimension. The aortic arch and great vessels are well seen and are normal. CONCLUSIONS Mild concentric left ventricular hypertrophy. Normal left ventricular ejection fraction visually estimated at >65 Abnormal septal motion consistent with pacemaker activation. Normal left ventricular diastolic filling pattern for age. Mild left atrial dilatation. Mild thickening/calcification of the mitral valve leaflets. Mild mitral annular calcification. [id number] mitral regurgitation. Focal thickening of the aortic valve cusps. No aortic stenosis. Trace aortic regurgitation. Right ventricular systolic pressure estimated to be elevated at 40- 45 mmHg. Catheter/pacemaker wire in the right ventricular cavity. Catheter/pacemaker wire in the right atrial appendage. Guzman Singer M.D. (Electronically Signed) Final Date: 05 November 2017 09:15 MEASUREMENTS (Male / Female) Normal Values 2D ECHO LV Diastolic Diameter PLAX 4.5 cm 4.2 - 5.9 / 3.9 - 5.3 cm LV Systolic Diameter PLAX 3.1 cm 2.1 - 4.0 cm LV Fractional Shortening PLAX 31.1 % 25 - 46 % LV Ejection Fraction 2D Teich 59.0 % IVS Diastolic Thickness 1.1 cm LVPW Diastolic Thickness 1.3 cm LV Relative Wall Thickness 0.5 RV Internal Dim ED PLAX 3.2 cm 1.9 - 3.8 cm LVOT Diameter 2.0 cm Aortic Root Diameter 3.0 cm LA Systolic Diameter LX 5.5 cm 3.0 - 4.0 / 2.7 - 3.8 cm LA Volume 49.0 cm 18 - 58 / 22 - 52 cm Ascending Aorta Diameter 3.1 cm DOPPLER AV Peak Velocity 183.0 cm/s AV Peak Gradient 13.4 mmHg AV Mean Velocity 120.0 cm/s AV Mean Gradient 7.0 mmHg AV Velocity Time Integral 33.4 cm LVOT Peak Velocity 115.0 cm/s LVOT Peak Gradient 5.3 mmHg LVOT Mean Velocity 77.1 cm/s LVOT Mean Gradient 3.0 mmHg LVOT Velocity Time Integral 23.7 cm LVOT Stroke Volume 74.5 cm AV Area Cont Eq vti 2.2 cm AV Area Cont Eq pk 2.0 cm MV Peak Velocity 116.0 cm/s MV Peak Gradient 5.4 mmHg MV Mean Velocity 70.8 cm/s MV Mean Gradient 2.0 mmHg Mitral E Point Velocity 80.9 cm/s Mitral A Point Velocity 88.4 cm/s Mitral E to A Ratio 0.9 MV PHT Velocity 123.0 cm/s MV Deceleration Harper 437.0 cm/s MV Pressure Half Time 84.4 ms MV Area PHT 2.6 cm MV Deceleration Time 285.0 ms TR Peak Velocity 298.0 cm/s TR Peak Gradient 35.5 mmHg Right Atrial Pressure 5.0 mmHg Pulmonary Artery Systolic Pressu 40.5 mmHg Right Ventricular Systolic Press 40.5 mmHg PV Peak Velocity 182.0 cm/s PV Peak Gradient 13.2 mmHg PV Mean Velocity 110.0 cm/s PV Mean Gradient 6.0 mmHg PV Velocity Time Integral 31.6 cm LV E' Lateral Velocity 12.6 cm/s Mitral E to LV E' Lateral Ratio 6.4 LV E' Septal Velocity 8.4 cm/s Mitral E to LV E' Septal Ratio 9.7
[2017-11-05 09:30] LABS: ABSOLUTE BASOPHIL COUNT 0 /CUMM (0.0-0.2); ABSOLUTE EOSINOPHIL COUNT 0.1 /CUMM (0.0-0.7); ABSOLUTE GRANULOCYTE CT 4.1 /CUMM (1.4-6.5); ABSOLUTE LYMPH COUNT 1.4 /CUMM (1.2-3.4); ABSOLUTE MONOCYTE COUNT 0.7 /CUMM (0.10-0.60)
[2017-11-05 09:52] LABS: BASOPHIL % 0.5 % (0.0-2.0); EOSINOPHIL % 1.2 % (0-5); GRANULOCYTE % 65.2 % (42.2-75.2); HEMATOCRIT 21.9 % (42-52); MEAN CORPUSCULAR HGB 33.1 PG (27.0-31.0); MEAN CORPUSCULAR HGB CONC 33.7 G/DL (33.0-37.0); MEAN CORPUSCULAR VOLUME 98.1 FL (80.0-94.0); MEAN PLATELET VOLUME 8.7 FL (7.4-10.4); PLATELET COUNT 97 /CUMM (130-400); RBC DISTRIBUTION WIDTH 14.4 % (11.5-14.5); RED BLOOD CELL CT 2.23 /CUMM (4.70-6.10); WHITE BLOOD CELL COUNT 6.2 /CUMM (4.8-10.8)
[2017-11-05 12:23] VITALS: BP 124/56
[2017-11-05 14:11] VITALS: BP 104/42
[2017-11-05 18:04] LABS: ABSOLUTE BASOPHIL COUNT 0 /CUMM (0.0-0.2); ABSOLUTE EOSINOPHIL COUNT 0.1 /CUMM (0.0-0.7); ABSOLUTE GRANULOCYTE CT 3.1 /CUMM (1.4-6.5); ABSOLUTE LYMPH COUNT 1.5 /CUMM (1.2-3.4); ABSOLUTE MONOCYTE COUNT 0.6 /CUMM (0.10-0.60); BASOPHIL % 0.5 % (0.0-2.0); EOSINOPHIL % 2.5 % (0-5); GRANULOCYTE % 57.8 % (42.2-75.2); HEMATOCRIT 22.6 % (42-52); MEAN CORPUSCULAR HGB 32.6 PG (27.0-31.0); MEAN CORPUSCULAR HGB CONC 33.5 G/DL (33.0-37.0); MEAN CORPUSCULAR VOLUME 97.3 FL (80.0-94.0); MEAN PLATELET VOLUME 8.8 FL (7.4-10.4); PLATELET COUNT 93 /CUMM (130-400); RBC DISTRIBUTION WIDTH 14.7 % (11.5-14.5); RED BLOOD CELL CT 2.32 /CUMM (4.70-6.10); WHITE BLOOD CELL COUNT 5.4 /CUMM (4.8-10.8)
[2017-11-05 22:06] VITALS: BP 132/44
[2017-11-06 06:15] VITALS: BP 126/56
--- NOTE | 2017-11-06 07:51 | PN- Housestaff ---
BenjiBeach 11/06/17 0750: Subjective Follow-up For: Left hip fracture S/P left hemiarthroplasty. Acute on chronic anemia Thrombocytopenia Subjective: Patient remained afebrile overnight. Seen and examined this morning. Patient denied any chest pain, short of breath, nausea, vomiting, chills, fever, abdominal pain and dysuria. He reported having dizziness when he tried to get out of the bed. He also reported having stiffness and pain in left leg but it's under control with pain medication. Patient's H&H remained low even after getting 3 units of packed red blood cell. Patient having left thigh swelling possibly normal inflammatory process after the surgery or could be due to DVT. We will get to ultrasound of left leg to rule out DVT and hematoma. His surgical wound looks clean there is no obvious bruise or hematoma. Patient having pacemaker on right side of chest. Review of Systems Constitutional: Reports: no symptoms. EENTM: Reports: no symptoms. Cardiovascular: Reports: no symptoms. Respiratory: Reports: see HPI. Gastrointestinal: Reports: no symptoms. Genitourinary: Reports: no symptoms. Musculoskeletal: Reports: see HPI. Neurological/Psychological: Reports: see HPI. Objective Last 24 Hrs of Vital Signs/I&O Vital Signs Date Time Temp Pulse Resp B/P B/P Pulse O2 O2 Flow FiO2 Mean Ox Delivery Rate 11/06 0615 98.9 64 20 126/56 97 Room Air 11/06 0000 97 Nasal 1.5L Cannula 11/05 2206 99.0 74 16 132/44 97 Nasal 2.0L Cannula 11/05 1411 99.4 56 18 104/42 99 Nasal 2.0L Cannula 11/05 1321 99.3 11/05 1223 99.6 70 20 124/56 94 Nasal 2.0L Cannula 11/05 1222 99.6 Intake & Output 11/06 0800 11/06 0000 11/05 1600 Intake Total 1200 Output Total 225 550 300 Balance -225 -550 900 Intake, Blood 350 Product Intake, IV 150 Intake, Oral 700 Output, Urine 225 550 300 Physical Exam General Appearance: Alert, Oriented X3, Cooperative Skin Temp/Moisture Exam: Warm/Dry HEENT: Atraumatic, PERRLA, EOMI Neck: Supple Cardiovascular: Normal S1, Normal S2, PACEMAKER ON RIGHT SIDE OF CHEST. Lungs: Clear to Auscultation Abdomen: Soft, No Tenderness Neurological: Normal Speech, Normal Tone Extremities: Not able to move left leg due to pain and stiffness. 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 Left hip fracture after the fall status post left hip hemiarthroplasty: -Postop day 1 after left hip hemiarthroplasty. -Pain management according to pain pathway. -Physical therapy. -We will start Eliquis today for anticoagulation. We will keep holding his aggrenox then we will resume it after 6 weeks of Eliquis. 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 Acute on chonic anemia: -Patient developed acute on chronic anemia probably multifactorial considering CKD and recent hip surgery. It could be due to dilutional effect as patient received 6 L of normal saline perioperatively. -Considering his signiicant cardiac history we will transfuse him to keep the Hb >8. -patient's H&H droped again to 7.4/21.9. so we will hold his anticoagulation for now and will transfuse him again today. Heparin is also on hold considering thrombocytopenia. We will check post transfusion H&H. -patient received total 3 units after surgery. we will check his H&H today again. -Doppler study is negative for hematoma and DVT. -We will start eliquis 2.5mg bid for 6 weeks for DVT prophylaxis after the hip surgery. Thrombocytopenia: -patient has thrombocytopenia so we will hold the heparin. -we will avoid all medications that can decrease the number or function of platelets. -we will follow the cbc for platelet count. Hyperkalemia:(RESOLVED) -Received 1 dose of by mouth Kayexalate -This morning potassium is 4.6 CKD: -Avoid nephrotoxic agents. -Patient has baseline creatinine level. QTC prolongation: -Monitor EKG -Avoid QTC prolonging agents. History of coronary artery disease status post CABG in 1999: -Continue metoprolol and statin. History of TIA/CVA on Aggrenox -Will hold Aggrenox. Right now patient will be on Eliquis for 6 anticoagulation to prevent DVT after the surgery. History of hypertension, hyperlipidemia: -Continue metoprolol and statin. Boderline Diabetes: -ACCU checks DVT prophylaxis: ALPS only due to thrombocytopenia DVT prophylaxis: DNR/DNI Problem List: 1. Fracture of femoral neck, left, closed 2. Anemia Pain Ratin Pain Location: left leg Pain Goal: Pain 4 or less Pain Plan: tylenol for mild pain percocet for moderate pain Tomorrow's Labs & Rationales: cbc/bep Consulting Request: Consulting Specialty: Orthopedics Stella Black MD 11/06/17 1147: Attending MD Review Statement Attending Statement Attending MD Statement: examined this patient, discuss w/resident/PA/LEAD DATABASE ADMINISTRATOR, agreed w/resident/PA/LEAD DATABASE ADMINISTRATOR, reviewed EMR data (avail) Attending Assessment/Plan: 87M PMH CAD S/P CABG, bradycardia S/P pacemaker admitted for mechanical fall and left hip fracture s/p repair on 11/03/17. Patient doing well, no complaints. Hgb now 9.0, no signs of bleeding, asymptomatic, vitals stable. 1. Left hip fracture, closed 2. Fall, initial 3. Post-operative blood loss anemia 4. History of CAD Plan - Stable for discharge to [facility] - Check CBC in 4 days as outpatient - Continue home medications, holding Aggrenox - Start Eliquis tomorrow for DVT PPx, Aggrenox to be started in 6 weeks once Eliquis course is complete - Continue current pain regimen
[2017-11-06 08:16] LABS: ABSOLUTE BASOPHIL COUNT 0 /CUMM (0.0-0.2); ABSOLUTE EOSINOPHIL COUNT 0.1 /CUMM (0.0-0.7); ABSOLUTE LYMPH COUNT 1.5 /CUMM (1.2-3.4); ABSOLUTE MONOCYTE COUNT 0.7 /CUMM (0.10-0.60); BASOPHIL % 0.1 % (0.0-2.0); EOSINOPHIL % 1.6 % (0-5); GRANULOCYTE % 63.3 % (42.2-75.2); HEMATOCRIT 26.8 % (42-52); MEAN CORPUSCULAR HGB 32.4 PG (27.0-31.0); MEAN CORPUSCULAR HGB CONC 33.5 G/DL (33.0-37.0); MEAN CORPUSCULAR VOLUME 96.6 FL (80.0-94.0); MEAN PLATELET VOLUME 8.5 FL (7.4-10.4); PLATELET COUNT 97 /CUMM (130-400); RBC DISTRIBUTION WIDTH 14.8 % (11.5-14.5); RED BLOOD CELL CT 2.78 /CUMM (4.70-6.10); WHITE BLOOD CELL COUNT 6.3 /CUMM (4.8-10.8)
--- NOTE | 2017-11-06 08:25 | PN- Orthopedic ---
See Addendum Subjective Subjective: pt in bed, complains of hip pain and is frustrated that he still cant wait even after working with PT for several days. Pt is SOB with activity and dixxy when he stands, on O2. Denies fevers. Voiding, +BM. Objective Vital Signs and I&Os Vital Signs Date Time Temp Pulse Resp B/P B/P Pulse O2 O2 Flow FiO2 Mean Ox Delivery Rate 11/06 0515 98.9 64 20 126/56 97 Room Air 11/06 0000 97 Nasal 1.5L Cannula 11/05 2206 99.0 74 16 132/44 97 Nasal 2.0L Cannula 11/05 1411 99.4 56 18 104/42 99 Nasal 2.0L Cannula 11/05 1321 99.3 11/05 1223 99.6 70 20 124/56 94 Nasal 2.0L Cannula 11/05 1222 99.6 Intake & Output 11/06 0800 11/06 0000 11/05 1600 11/05 0800 11/05 0000 11/04 1600 Intake Total 1200 599 695 7885 Output Total 225 550 300 425 550 450 Balance -225 -550 900 175 -325 650 Intake, Blood 350 Product Intake, IV 150 600 225 600 Intake, Oral 700 500 Output, Urine 225 550 300 425 550 450 Physical Exam: gen- NAD, AAx3 resp- CTAB cario-RRR Abd- ND, +BS, nontender ext- Left hip swollen, edematous, no surround erythema, minimal serous drainage on dressing. Left get swollen more thgan right, no calf tenderness. Distal sensation intact. 2+ PT pulse Results Last 48 Hours of Labs: Laboratory Tests 11/06 11/05 0707 1703 Hematology CBC w Diff Pending NO MAN DIFF REQ WBC (4.8 - 10.8 /CUMM) Pending 5.4 RBC (4.70 - 6.10 /CUMM) Pending 2.32 L Hgb (14.0 - 18.0 G/DL) Pending 7.6 L Hct (42 - 52 %) Pending 22.6 L MCV (80.0 - 94.0 FL) Pending 97.3 H MCH (27.0 - 31.0 PG) Pending 32.6 H RDW (11.5 - 14.5 %) Pending 14.7 H Plt Count (130 - 400 /CUMM) Pending 93 L MPV (7.4 - 10.4 FL) Pending 8.8 Gran % (42.2 - 75.2 %) 57.8 Lymphocytes % (20.5 - 51.1 %) 27.7 Monocytes % (1.7 - 9.3 %) 11.5 H Eosinophils % (0 - 5 %) 2.5 Basophils % (0.0 - 2.0 %) 0.5 Absolute Granulocytes (1.4 - 6.5 /CUMM) 3.1 Absolute Lymphocytes (1.2 - 3.4 /CUMM) 1.5 Absolute Monocytes (0.10 - 0.60 /CUMM) 0.6 Absolute Eosinophils (0.0 - 0.7 /CUMM) 0.1 Absolute Basophils (0.0 - 0.2 /CUMM) 0 PUBS MCHC (33.0 - 37.0 G/DL) Pending 33.5 11/05 11/04 0735 2009 Hematology CBC w Diff NO MAN DIFF REQ NO MAN DIFF REQ WBC (4.8 - 10.8 /CUMM) 6.2 7.9 RBC (4.70 - 6.10 /CUMM) 2.23 L 2.44 L Hgb (14.0 - 18.0 G/DL) 7.4 *L 8.0 L Hct (42 - 52 %) 21.9 L 23.9 L MCV (80.0 - 94.0 FL) 98.1 H 97.7 H MCH (27.0 - 31.0 PG) 33.1 H 32.8 H RDW (11.5 - 14.5 %) 14.4 14.4 Plt Count (130 - 400 /CUMM) 97 L 101 L MPV (7.4 - 10.4 FL) 8.7 8.7 Gran % (42.2 - 75.2 %) 65.2 67.0 Lymphocytes % (20.5 - 51.1 %) 22.3 20.8 Monocytes % (1.7 - 9.3 %) 10.8 H 11.2 H Eosinophils % (0 - 5 %) 1.2 0.7 Basophils % (0.0 - 2.0 %) 0.5 0.3 Absolute Granulocytes (1.4 - 6.5 /CUMM) 4.1 5.3 Absolute Lymphocytes (1.2 - 3.4 /CUMM) 1.4 1.6 Absolute Monocytes (0.10 - 0.60 /CUMM) 0.7 H 0.9 H Absolute Eosinophils (0.0 - 0.7 /CUMM) 0.1 0.1 Absolute Basophils (0.0 - 0.2 /CUMM) 0 0 PUBS MCHC (33.0 - 37.0 G/DL) 33.7 33.6 11/04 1111 Hematology CBC w Diff NO MAN DIFF REQ WBC (4.8 - 10.8 /CUMM) 7.0 RBC (4.70 - 6.10 /CUMM) 2.29 L Hgb (14.0 - 18.0 G/DL) 7.6 L Hct (42 - 52 %) 22.6 L MCV (80.0 - 94.0 FL) 98.9 H MCH (27.0 - 31.0 PG) 33.3 H RDW (11.5 - 14.5 %) 12.9 Plt Count (130 - 400 /CUMM) 94 L MPV (7.4 - 10.4 FL) 8.7 Gran % (42.2 - 75.2 %) 80.9 H Lymphocytes % (20.5 - 51.1 %) 10.5 L Monocytes % (1.7 - 9.3 %) 8.3 Eosinophils % (0 - 5 %) 0.1 Basophils % (0.0 - 2.0 %) 0.2 Absolute Granulocytes (1.4 - 6.5 /CUMM) 5.6 Absolute Lymphocytes (1.2 - 3.4 /CUMM) 0.7 L Absolute Monocytes (0.10 - 0.60 /CUMM) 0.6 Absolute Eosinophils (0.0 - 0.7 /CUMM) 0 Absolute Basophils (0.0 - 0.2 /CUMM) 0 PUBS MCHC (33.0 - 37.0 G/DL) 33.7 Assessment/Plan Assessment/Plan 87yo M with L hip fx SP L hip hemiarthroplasty POD 3 Hospitalist order L hip US to check for hematoma due to dropping H&H and DVT US due to Left leg swelling. Likely will not take back to [place] if there is a hematoma unless it is infected. May need to wrap leg in ry bandages if there is a hematoma to tamponad bleeding. Otherwise supportive care with IVF and blood as needed. . H&H will need to stabalize before DC to rehab DVT prophylaxis per medical team. Dr. Estuardo Hawkinsx for 6 weeks post-op Cont PT - WBAT Cont to follow serial H&H Daily dry dressing change Core Measures Venous Thromboembolism VTE Risk Factors Immobility No Mechanical VTE Prophylaxis d/t N/A MechProphylax Ordered No VTE Pharm Prophylaxis d/t NA PharmProphylax ordered
--- NOTE | 2017-11-06 10:12 | ULTRASOUND REPORT ---
EXAMINATION: LEFT LOWER EXTREMITY VENOUS DOPPLER ULTRASOUND LIMITED PELVIC ULTRASOUND CLINICAL INFORMATION: Perioperative drop in H\T\H and left thigh swelling with pain and stiffness. Please look for thigh and pelvic hematoma. Presumptive diagnosis of DVT of left leg and hematoma of the left thigh. COMPARISON: None. TECHNIQUE: Doppler spectral analysis and color flow Doppler imaging was performed of the left lower extremity. Compression and augmentation maneuvers were performed. FINDINGS: Left lower extremity venous Doppler ultrasound and pelvic ultrasound: The left common femoral vein, greater saphenous vein takeoff, femoral vein, and popliteal vein are normally compressible with normal augmentation responses and phasic changes seen with Doppler imaging. The midcalf peroneal and posterior tibial veins are not adequately assessed. No popliteal cyst is seen. Evaluation of the soft tissues of the left thigh is limited by a bandage and patient's inability to move his legs. There is prominence superficial soft tissue swelling seen. No defined focal fluid collection or hematoma is noted in the exposed segments of the left thigh. In the pelvis, mild superficial edema is seen in the soft tissues. In the pelvis itself, evaluation is limited due to extensive bowel gas obscuring assessment. The bladder is fully distended and appears unremarkable. Pelvic veins are partially imaged and appear intact. IMPRESSION: 1. No evidence of deep venous thrombosis in the left lower extremity. 2. Soft tissue swelling is seen over the pelvis and left thigh without defined soft tissue hematoma or other fluid collection seen. As discussed above, evaluation of the left thigh is limited by overlying bandage.
[2017-11-06] MEDS ORDERED: ELIQUIS2.5 M1 PO (11:44)
[2017-11-06] MEDS ORDERED: PERCOCET 10-321 EACH PO (13:24)
[2017-11-06] MEDS ORDERED: BISACODYL5 M1 PO (13:48)
[2017-11-06] MEDS ORDERED: MIRALAX119 GM PO (13:48)
[2017-11-06 15:10] VITALS: BP 138/60
[2017-11-06 18:05] VITALS: BP 138/60
--- NOTE | 2017-11-06 21:01 | Event Note ---
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 Patient underwent left hemiarthroplasty we were signed out by the morning team that discharging was held initially due to constipation, and was planned to be discharged tomorrow. Patient received enema and constipation was resolved. Assessment and plan Nursing performed a bladder scan which revealed 999 cc of urine in bladder. Patient was alert and oriented, denied any past medical history of BPH/related medication. Abdominal distention was appreciated in physical exam. Earlier in the afternoon patient was able to void 100 mL. Straight cath was done which drained 9 15 mL of urine. Considering change in patient's medical condition the discharge order from 4 PM was discontinued. Plan will be signed out to the morning team.
[2017-11-06 21:54] VITALS: BP 128/66
[2017-11-07 06:57] VITALS: BP 128/54
--- NOTE | 2017-11-07 07:00 | PN- Housestaff ---
BenjiBeach 11/07/17 0700: Subjective Follow-up For: Left hip fracture S/P left hemiarthroplasty. Acute on chronic anemia(improved) Thrombocytopenia Subjective: Last night patient was supposed to to go to short-term rehabilitation but he couldn't sleep because initially patient had complained of constipation that were solved and he had bowel movement but later on patient had urinary retention. Patient seen and examined this morning. He denied any chest pain, short of breath, nausea, chills, fever, abdominal pain and dysuria. If patient is able to urinate by himself today so we will send him home we will start Flomax to help him urinate. Review of Systems Constitutional: Reports: no symptoms. EENTM: Reports: no symptoms. Cardiovascular: Reports: no symptoms. Respiratory: Reports: no symptoms. Gastrointestinal: Reports: no symptoms. Genitourinary: Reports: see HPI. Musculoskeletal: Reports: see HPI. Neurological/Psychological: Reports: no symptoms. Objective Last 24 Hrs of Vital Signs/I&O Vital Signs Date Time Temp Pulse Resp B/P B/P Pulse O2 O2 Flow FiO2 Mean Ox Delivery Rate 11/07 0657 99.2 66 22 128/54 94 Room Air 11/06 2154 98.9 76 21 128/66 97 Room Air 11/06 1805 97.8 72 18 138/60 11/06 1510 97.8 72 18 138/60 96 Room Air Intake & Output 11/07 1600 11/07 0800 11/07 0000 Intake Total 60 240 Output Total 250 1225 Balance -190 -985 Intake, Oral 60 240 Number 0 Bowel Movements Output, Urine 250 1225 Physical Exam General Appearance: Alert, Oriented X3, Cooperative, No Acute Distress Skin Temp/Moisture Exam: Warm/Dry HEENT: Atraumatic, PERRLA, EOMI Neck: Supple Cardiovascular: Normal S1, Normal S2 Lungs: Clear to Auscultation Abdomen: Soft, No Tenderness Neurological: Normal Speech, Normal Tone Extremities: No Edema Assessment/Plan Assessment: 87 YO M was PMH significant for [place] status post CABG 1999, history of bradycardia status post pacemaker 2008, 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 Left hip fracture after the fall status post left hip hemiarthroplasty: -Postop day 1 after left hip hemiarthroplasty. -Pain management according to pain pathway. -Physical therapy. -We will start Eliquis today for anticoagulation. We will keep holding his aggrenox then we will resume it after 6 weeks of Eliquis. For resuming Aggrenox and stopping Eliquis patient will follow his packaging engineer and orthopedic surgeon as outpatient and they will decide accordingly. Acute on chonic anemia:(improved) -Patient developed acute on chronic anemia probably multifactorial considering CKD and recent hip surgery. It could be due to dilutional effect as patient received 6 L of normal saline perioperatively. -Considering his signiicant cardiac history we will transfuse him to keep the Hb >8. -patient's H&H droped again to 7.4/21.9. so we will hold his anticoagulation for now and will transfuse him again today. Heparin is also on hold considering thrombocytopenia. We will check post transfusion H&H. -patient received total 3 units after surgery. we will check his H&H today again. -Doppler study is negative for hematoma and DVT. -We will start eliquis 2.5mg bid for 6 weeks for DVT prophylaxis after the hip surgery. -Today his hemoglobin is 8.8 and it stable. Thrombocytopenia: -patient has thrombocytopenia so we will hold the heparin. -we will avoid all medications that can decrease the number or function of platelets. -we will follow the cbc for platelet count. Hyperkalemia:(RESOLVED) -Received 1 dose of by mouth Kayexalate -This morning potassium is 4.6 CKD: -Avoid nephrotoxic agents. -Patient has baseline creatinine level. QTC prolongation: -Monitor EKG -Avoid QTC prolonging agents. History of coronary artery disease status post CABG in 2000: -Continue metoprolol and statin. History of TIA/CVA on Aggrenox -Will hold Aggrenox. Right now patient will be on Eliquis for 6 anticoagulation to prevent DVT after the surgery. History of hypertension, hyperlipidemia: -Continue metoprolol and statin. Boderline Diabetes: -ACCU checks DVT prophylaxis: ALPS only due to thrombocytopenia DVT prophylaxis: DNR/DNI Problem List: 1. Anemia 2. Fracture of femoral neck, left, closed Pain Ratin Pain Location: none Pain Goal: Remain pain free Pain Plan: tylenol for mild pain percocet for moderate pain Tomorrow's Labs & Rationales: none Consulting Request: Consulting Specialty: Orthopedics Sofia CAMPOSStella 11/07/17 1123: Attending MD Review Statement Attending Statement Attending MD Statement: examined this patient, discuss w/resident/PA/FRONT TENDER, agreed w/resident/PA/FRONT TENDER, reviewed EMR data (avail) Attending Assessment/Plan: 87M PMH CAD S/P CABG, bradycardia S/P pacemaker admitted for mechanical fall and left hip fracture s/p repair on 11/03/17. Patient doing well, no complaints. Hgb now 8.9, no signs of bleeding, asymptomatic, vitals stable. Yesterday had urinary retention with 900mL removed by straight cath. Today asymptomatic, still has not urinated. 1. Left hip fracture, closed 2. Fall, initial 3. Post-operative blood loss anemia 4. History of CAD Plan - Stable for discharge to [facility] pending urine - If patient is still retaining urine in the afternoon, will place Husain catheter, discharge with Husain, and outpatient urology follow up - Start Flomax, monitor for orthostatic symptoms - Check CBC in 4 days as outpatient - Continue home medications, holding Aggrenox - Eliquis for DVT PPx, Aggrenox to be started in 6 weeks once Eliquis course is complete - Continue current pain regimen
[2017-11-07 09:34] LABS: ABSOLUTE BASOPHIL COUNT 0 /CUMM (0.0-0.2); ABSOLUTE EOSINOPHIL COUNT 0 /CUMM (0.0-0.7); ABSOLUTE LYMPH COUNT 1.4 /CUMM (1.2-3.4); ABSOLUTE MONOCYTE COUNT 0.7 /CUMM (0.10-0.60); BASOPHIL % 0.3 % (0.0-2.0); EOSINOPHIL % 0.3 % (0-5); GRANULOCYTE % 73.7 % (42.2-75.2); MEAN CORPUSCULAR HGB 32.6 PG (27.0-31.0); MEAN CORPUSCULAR HGB CONC 33.8 G/DL (33.0-37.0); MEAN CORPUSCULAR VOLUME 96.4 FL (80.0-94.0); MEAN PLATELET VOLUME 8.7 FL (7.4-10.4); PLATELET COUNT 120 /CUMM (130-400); RBC DISTRIBUTION WIDTH 13.8 % (11.5-14.5); RED BLOOD CELL CT 2.69 /CUMM (4.70-6.10); WHITE BLOOD CELL COUNT 8.1 /CUMM (4.8-10.8)
[2017-11-07] MEDS ORDERED: FLOMAX0.4 M1 PO (14:04)
[2017-11-07 14:57] VITALS: BP 120/62
[2017-11-07 16:10] VITALS: BP 120/62
== END 2017-11-07 16:55 | DRG 470 ==
LOC: ERH 20:03 → 2NB 22:13 → ERHI 22:13 → ENRESERV 11-02 13:30 → ENTRNSPT 11-02 14:47 → 2NB 11-02 15:18 → CMPTRNSPT 11-02 15:37 → 2NB 11-03 09:33 → ENTRNSPT 11-03 20:01 → CMPTRNSPT 11-03 20:23 → ENPENDDIS 11-06 16:52 → EDPENDDISDT 11-07 14:16 → EDPENDDISTM 11-07 14:16 → 2NB 11-07 16:55
PROVIDERS: Emergency Medicine; Student in an Organized Health Care Education/Training Program
PROC: 0SRS0JZ Replacement of Left Hip Joint, Femoral Surface with Synthetic Substitute, Open Approach (ICD-10-PCS; principal; 2017-11-03)
PROC: 30253N1 (ICD-10-PCS; 2017-11-06)
DX: S72.012A Unspecified intracapsular fracture of left femur, initial encounter for closed fracture (principal); D69.6 Thrombocytopenia, unspecified; E87.5 Hyperkalemia; D62 Acute posthemorrhagic anemia; L76.32 Postprocedural hematoma of skin and subcutaneous tissue following other procedure; Z95.1 Presence of aortocoronary bypass graft; I25.10 Atherosclerotic heart disease of native coronary artery without angina pectoris; Z95.0 Presence of cardiac pacemaker; I12.9 Hypertensive chronic kidney disease with stage 1 through stage 4 chronic kidney disease, or unspecified chronic kidney disease; N18.9 Chronic kidney disease, unspecified; Y83.9 Surgical procedure, unspecified as the cause of abnormal reaction of the patient, or of later complication, without mention of misadventure at the time of the procedure; I25.2 Old myocardial infarction; R00.1 Bradycardia, unspecified; Z86.73 Personal history of transient ischemic attack (TIA), and cerebral infarction without residual deficits; R73.03 Prediabetes; W19.XXXA Unspecified fall, initial encounter; R26.81 Unsteadiness on feet; R33.8 Other retention of urine; H91.90 Unspecified hearing loss, unspecified ear; Z87.891 Personal history of nicotine dependence
CPT/HCPCS: 2NBP; ERO; 36415; 71045; 72170; 73502-LT; 82436; 86920; 88305; 93005; 93010; 93306; 96374; 97110-GO; 97116-GO; 97161-GP; 97530-GO; C1713; C9399; J0131; J0690; J1100; J1644; J2405; P9016